=== PATIENT | male | born 1935 | race Caucasian/White ===

== ENCOUNTER → 2018-12-27 | Outpatient (CLI) | payer MEDICARE, OTHER ==
[~2018-12-27] MED LIST: ASP325T PO; ATEN100T88 PO; ATRV10T PO; IBUP-15 PO; TMSL.4C PO
[2018-12-27 08:21] LABS: ALANINE AMINOTRANSFERASE 14 U/L (0-55); ALKALINE PHOSPHATASE 96 U/L (40-136); BILIRUBIN,TOTAL 0.7 MG/DL (0.1-1.0); BUN/CREATININE RATIO 14; CALCIUM 8.9 MG/DL (8.5-10.1); CARBON DIOXIDE 23 MMOL/L (21-32); CHLORIDE 104 MMOL/L (98-107); CHOLESTEROL 148 MG/DL (< 200); CREATININE SERUM 0.98 MG/DL (0.60-1.30); GFR ESTIMATED > 60; GLUCOSE 101 MG/DL (70-105); HDL CHOLESTEROL 43 MG/DL (40-60); POTASSIUM 4.2 MMOL/L (3.6-5.0); SODIUM 138 MMOL/L (135-145); TOTAL PROTEIN 7.3 GM/DL (6.4-8.2); TRIGLYCERIDES 98 MG/DL (<150); VLDL CHOLESTEROL 20 MG/DL (5-40)
== END ==
LOC: LAB 07:46
PROVIDERS: ATTEND Nurse Practitioner Family
DX: I25.10 Atherosclerotic heart disease of native coronary artery without angina pectoris (principal); E78.5 Hyperlipidemia, unspecified; I77.9 Disorder of arteries and arterioles, unspecified
CPT/HCPCS: 36415; 80053; 80061

== ENCOUNTER 2021-06-26 10:07 | Emergency (ER) | payer MEDICARE, OTHER ==
[~2021-06-26] VITALS: Ht 177 cm; Wt 80.0 kg
--- NOTE | 2021-06-26 10:53 | ED EENT ---
History of Present Illness General Chief Complaint: Oral/Throat Problems Stated Complaint: MOUTH PAIN Nursing Triage Note: PT HERE TO GET MOUTH CHECKED, PT HAS ULCER TYPE AREA ON LOWER LIP THAT HE STATES IS CANCER AND IS SUPPOSE TO HAVE RADIATION. PT HAS NEVER SEEN A PHYCIAN CO LOWER LIP. PT HAS NO REGULAR DR[facility] HAS NO RECORDS OR CONTACTS CO THIS PT. 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 He has had known lower lip cancer for many years. He thought he was coming to get radiation therapy today. He did not have an appointment so was referred to the ER. He denies any chest pain, shortness of breath, abdominal pain, nausea, vomiting, diarrhea, fever, chills, weakness, numbness, or any other concerns. He says his lower lip has been hurting him for many years and he finally got a referral for someone to see him. Allergies and Home Medications Allergies Coded Allergies: No Allergy Information Available (Unverified , 10/22/13) Patient Home Medication List Home Medication List Reviewed: Yes Aspirin (Aspirin 325 Mg Tab) 325 Mg Tab, 325 MG PO DAILY, (Reported) Entered as Reported by: DIPIKA CASTRO on 07/27/10 125 Atenolol (Tenormin 100 Mg) 100 Mg Tablet, 100 MG PO DAILY, (Reported) Entered as Reported by: DIPIKA CASTRO on 07/27/10 125 Atorvastatin Calcium (Lipitor 10 Mg) 10 Mg Tablet, 10 MG PO DAILY, (Reported) Entered as Reported by: DIPIKA CASTRO on 07/27/10 125 Ibuprofen (Advil) 200 Mg Tablet, 2 TAB PO HS, (Reported) Entered as Reported by: DIPIKA CASTRO on 07/27/10 125 Tamsulosin Hcl (Flomax) 0.4 Mg Cap, 0.4 MG PO DAILY, (Reported) Entered as Reported by: DIPIKA CASTRO on 07/27/10 125 Review of Systems Review of Systems Constitutional: no symptoms reported Eyes: No Symptoms Reported Ears: No Symptoms Reported Nose: no symptoms reported Mouth: other (Lip cancer) Throat: no symptoms reported Respiratory: no symptoms reported Cardiovascular: no symptoms reported Gastrointestinal: no symptoms reported Musculoskeletal: no symptoms reported Skin: no symptoms reported Neurological: No Symptoms Reported Hematologic/Lymphatic: No Symptoms Reported Immunological/Allergic: no symptoms reported All Other Systems Reviewed Negative Unless Noted: Yes Past Fmntowg-Wrlpbj-Crwfwx Hx Patient Social History Tobacco Use?: No Past Medical History Surgeries: No Physical Exam Vital Signs Vital Signs - First Documented 06/26/21 10:20 Temp 36.6 Pulse 82 Resp 18 B/P (MAP) 154/81 (105) Pulse Ox 95 Height, Weight, BMI Height: '" Weight: lbs. oz. kg; 25.00 BMI Method: General Appearance: WD/WN, no apparent distress Eyes: bilateral eye normal inspection Ears: bilateral ear auricle normal Nose: normal inspection Mouth/Throat: other (Lower lip ulceration in the midline with some swelling but no cellulitis or discharge) Neck: non-tender, full range of motion, supple, normal inspection Cardiovascular: regular rate, rhythm, no edema, no murmur Respiratory: chest non-tender, lungs clear, normal breath sounds, no respiratory distress, no accessory muscle use Gastrointestinal: normal bowel sounds, non tender, soft; No distended, No guarding, No rebound Neurologic/Psychiatric: no motor/sensory deficits, alert, normal mood/affect Skin: normal color, warm/dry Progress/Results/Core Measures Results/Orders Vital Signs/I&O 06/26/21 10:20 Temp 36.6 Pulse 82 Resp 18 B/P (MAP) 154/81 (105) Pulse Ox 95 Blood Pressure Mean: 105 Progress Progress Note : Progress Note 86-year-old male with above history coming in thinking he was getting started on radiation therapy. The patient was confused as to why he was truly here. We contacted family and they said he has an appointment with Dr. Cadet to go over options for his lip cancer. They said he really was not supposed to come to the ER. He has no acute complaints at this time. He was discharged in stable condition with strict return precautions Departure Impression Primary Impression: Lip ulceration Disposition: 01 HOME, SELF-CARE Condition: Stable Departure-Patient Inst. Decision time for Depature: 10:52 Referrals: JEFERSON CADET MD NO,LOCAL PHYSICIAN (PCP) Primary Care Physician Patient Instructions: Mouth Cancer Add. Discharge Instructions: Please follow-up with Dr. Cadet to discuss options with your mouth lesion RUBENS COVINGTON MD Jun 26, 2021 10:53
[2021-06-26 11:35] VITALS: BP 154/81
== END 2021-06-26 11:35 | disposition home or self-care (01) ==
LOC: EDUNIT# 10:07 → ER 10:08
DX: C00.2 Malignant neoplasm of external lip, unspecified (principal); K13.0 Diseases of lips
CPT/HCPCS: 99281

== ENCOUNTER 2021-09-22 17:45 | Inpatient (IN) | payer MEDICARE, OTHER ==
[~2021-09-22] VITALS: Ht 183 cm; Wt 65.3 kg
[2021-09-22] MEDS ORDERED: LIDOCAINE UROJET 2% GEL 10 ML PKG ONE (18:12)
[2021-09-22] MEDS ORDERED: LIDOCAINE UROJET 2% GEL 10 ML PKG TOP ONE (18:15)
[2021-09-22] MEDS ORDERED: NS IV 1000 ML 1,000 ML IV SCH (18:15)
[2021-09-22 18:16] LABS: BASOPHILS % (AUTO) 0 % (0-10); EOSINOPHILS % (AUTO) 0 % (0-10); HEMATOCRIT 46 % (40-54); HEMOGLOBIN 15.6 g/dL (13.3-17.7); LYMPHOCYTES # (AUTO) 0.8 10^3/uL (1.0-4.0); LYMPHOCYTES % (AUTO) 8 % (12-44); MEAN CORPUSCULAR HEMOGLOBIN 30 pg (25-34); MEAN CORPUSCULAR HGB CONC 34 g/dL (32-36); MEAN CORPUSCULAR VOLUME 88 fL (80-99); MEAN PLATELET VOLUME 8.4 fL (9.0-12.2); MONOCYTES # (AUTO) 0.6 10^3/uL (0.0-1.0); MONOCYTES % (AUTO) 6 % (0-12); NEUTROPHILS # (AUTO) 8.9 10^3/uL (1.8-7.8); NEUTROPHILS % (AUTO) 86 % (42-75); PLATELET COUNT 241 10^3/uL (130-400); WHITE BLOOD COUNT 10.3 10^3/uL (4.3-11.0)
[2021-09-22 18:24] LABS: ALBUMIN 3.8 GM/DL (3.2-4.5); CHLORIDE 105 MMOL/L (98-107); POTASSIUM 4.2 MMOL/L (3.6-5.0); SODIUM 139 MMOL/L (135-145)
[2021-09-22 18:25] LABS: CALCIUM 8.8 MG/DL (8.5-10.1)
[2021-09-22 18:26] LABS: GLUCOSE 167 MG/DL (70-105)
[2021-09-22 18:27] LABS: TOTAL PROTEIN 7.3 GM/DL (6.4-8.2)
[2021-09-22 18:28] LABS: BILIRUBIN,TOTAL 0.7 MG/DL (0.1-1.0); CARBON DIOXIDE 18 MMOL/L (21-32)
[2021-09-22 18:30] LABS: ALKALINE PHOSPHATASE 74 U/L (40-136); CREATININE SERUM 1.09 MG/DL (0.60-1.30); GFR ESTIMATED 67
[2021-09-22 18:31] LABS: BUN/CREATININE RATIO 27
[2021-09-22 18:33] LABS: ALANINE AMINOTRANSFERASE 24 U/L (0-55); CREATINE KINASE 1633 U/L (30-200); MAGNESIUM 2.3 MG/DL (1.6-2.4)
--- NOTE | 2021-09-22 18:36 | ED General ---
General Chief Complaint: Trauma-Non Activation Stated Complaint: FOUND IN YARD Source of Information: Patient, Other (SON -IN-LAW BRINGS PT IN, BUT DOES NOT KNOW ANYTHING ABOUT PT'S PMH OR EVENTS OF TODAY) Exam Limitations: Other (PT WITH DEMENTIA, BUT ABLE TO ANSWER A FEW QUESTIONS A PPROPRIATELY, BUT IS DISORIENTED TO TIME/SITUATION) History of Present Illness Date Seen by Provider: Sep 22, 2021 Time Seen by Provider: 17:59 Initial Comments PT ARRIVES VIA POV FROM HOME WITH SON-IN-LAW PT WITH DEMENTIA AND LIVES ALONE PT WAS FOUND ON THE GROUND OUTSIDE OF HIS HOME, BY HIS SISTER, AROUND 1600 TODAY--WAS NOT WEARING A SHIRT, BUT WAS WEARING JEANS SISTER DID NOT ACCOMPANY HIM TO ER IS NOT KNOWN HOW LONG HE HAS BEEN OUTSIDE LAST KNOWN WELL TIME IS UNKNOWN--THEY THINK THAT PT'S SISTER "MIGHT" HAVE TALKED TO HIM ON THE PHONE SON IN LAW DOES NOT KNOW ANY HISTORY, IS ON PHONE WITH HIS , PT'S DAUGHTER SHE ONLY KNOWS MINIMAL HISTORY ONLY KNOWN MEDICATION IS FOR DEMENTIA PT HAS A PACEMAKER--DO NOT KNOW WHY IT WAS PUT IN ONLY OTHER HISTORY IS THAT HE IS TO HAVE SURGERY ON HIS LIP BY DR BETANCOURT FOR CANCER TO HIS LIP. NO OTHER HISTORY IS KNOWN THEY THINK HE HAS HAD A COVID VACCINE, BUT ARE NOT CERTAIN. Allergies and Home Medications Allergies Coded Allergies: No Allergy Information Available (Unverified , 10/22/13) Patient Home Medication List Aspirin (Aspirin 325 Mg Tab) 325 Mg Tab, 325 MG PO DAILY, (Reported) Entered as Reported by: DIPIKA CASTRO on 07/27/10 125 Atenolol (Tenormin 100 Mg) 100 Mg Tablet, 100 MG PO DAILY, (Reported) Entered as Reported by: DIPIKA CASTRO on 07/27/10 125 Atorvastatin Calcium (Lipitor 10 Mg) 10 Mg Tablet, 10 MG PO DAILY, (Reported) Entered as Reported by: DIPIKA CASTRO on 07/27/10 125 Ibuprofen (Advil) 200 Mg Tablet, 2 TAB PO HS, (Reported) Entered as Reported by: DIPIKA CASTRO on 07/27/10 1255 Tamsulosin Hcl (Flomax) 0.4 Mg Cap, 0.4 MG PO DAILY, (Reported) Entered as Reported by: DIPIKA CASTRO on 07/27/10 1254 Past Oobzpoi-Jfcjfp-Zmform Hx Past Medical History Surgeries: No Physical Exam Vital Signs Vital Signs - First Documented 09/22/21 18:30 O2 Flow Rate 2.00 Capillary Refill : Height, Weight, BMI Height: '" Weight: lbs. oz. kg; 25.00 BMI Method: Progress/Results/Core Measures Suspected Sepsis SIRS Temperature: Pulse: Respiratory Rate: Laboratory Tests 09/22/21 18:08: White Blood Count 10.3 Blood Pressure / Mean: Laboratory Tests 09/22/21 18:08: Creatinine 1.09, Platelet Count 241, Total Bilirubin 0.7 09/22/21 18:29: INR Comment 1.1 Results/Orders Lab Results Laboratory Tests Test 09/22/21 17:57 09/22/21 18:08 09/22/21 18:15 09/22/21 18:29 Range/Units Glucometer 205 H 70-110 MG/DL White Blood Count 10.3 4.3-11.0 10^3/uL Red Blood Count 5.19 4.30-5.52 10^6/uL Hemoglobin 15.6 13.3-17.7 g/dL Hematocrit 46 40-54 % Mean Corpuscular Volume 88 80-99 fL Mean Corpuscular Hemoglobin 30 25-34 pg Mean Corpuscular Hemoglobin Concent 34 32-36 g/dL Red Cell Distribution Width 14.0 10.0-14.5 % Platelet Count 241 130-400 10^3/uL Mean Platelet Volume 8.4 L 9.0-12.2 fL Immature Granulocyte % (Auto) 1 % Neutrophils (%) (Auto) 86 H 42-75 % Lymphocytes (%) (Auto) 8 L 12-44 % Monocytes (%) (Auto) 6 0-12 % Eosinophils (%) (Auto) 0 0-10 % Basophils (%) (Auto) 0 0-10 % Neutrophils # (Auto) 8.9 H 1.8-7.8 10^3/uL Lymphocytes # (Auto) 0.8 L 1.0-4.0 10^3/uL Monocytes # (Auto) 0.6 0.0-1.0 10^3/uL Eosinophils # (Auto) 0.0 0.0-0.3 10^3/uL Basophils # (Auto) 0.0 0.0-0.1 10^3/uL Immature Granulocyte # (Auto) 0.1 0.0-0.1 10^3/uL Neutrophils % (Manual) 89 % Lymphocytes % (Manual) 3 % Monocytes % (Manual) 4 % Reactive Lymphocytes 4 % Blood Morphology Comment NORMAL Sodium Level 139 135-145 MMOL/L Potassium Level 4.2 3.6-5.0 MMOL/L Chloride Level 105 98-107 MMOL/L Carbon Dioxide Level 18 L 21-32 MMOL/L Anion Gap 16 H 5-14 MMOL/L Blood Urea Nitrogen 29 H 7-18 MG/DL Creatinine 1.09 0.60-1.30 MG/DL Estimat Glomerular Filtration Rate 67 BUN/Creatinine Ratio 27 Glucose Level 167 H 70-105 MG/DL Calcium Level 8.8 8.5-10.1 MG/DL Corrected Calcium 9.0 8.5-10.1 MG/DL Magnesium Level 2.3 1.6-2.4 MG/DL Total Bilirubin 0.7 0.1-1.0 MG/DL Aspartate Amino Transf (AST/SGOT) 53 H 5-34 U/L Alanine Aminotransferase (ALT/SGPT) 24 0-55 U/L Alkaline Phosphatase 74 40-136 U/L Total Creatine Kinase 1633 H 30-200 U/L Creatine Kinase MB 4.0 <6.6 NG/ML Myoglobin 703.6 H 10.0-92.0 NG/ML Troponin I < 0.028 <0.028 NG/ML B-Type Natriuretic Peptide 56.8 <100.0 PG/ML Total Protein 7.3 6.4-8.2 GM/DL Albumin 3.8 3.2-4.5 GM/DL Serum Alcohol < 10 <10 MG/DL Urine Color YELLOW Urine Clarity CLEAR Urine pH 5.0 5-9 Urine Specific [place] >=1.030 1.016-1.022 Urine Protein 1+ H NEGATIVE Urine Glucose (UA) NEGATIVE NEGATIVE Urine Ketones TRACE H NEGATIVE Urine Nitrite NEGATIVE NEGATIVE Urine Bilirubin NEGATIVE NEGATIVE Urine Urobilinogen 0.2 < = 1.0 MG/DL Urine Leukocyte Esterase NEGATIVE NEGATIVE Urine RBC (Auto) 2+ H NEGATIVE Urine RBC 25-50 H /HPF Urine WBC 0-2 /HPF Urine Crystals PRESENT H /LPF Urine Amorphous Sediment FEW JANINE URATES H /LPF Urine Bacteria TRACE /HPF Urine Casts PRESENT /LPF Urine Hyaline Casts 5-10 H /LPF Urine Granular Casts 2-5 H /LPF Urine Mucus NEGATIVE /LPF Urine Culture Indicated NO Influenza Type A (RT-PCR) Not Detected Not Detecte Influenza Type B (RT-PCR) Not Detected Not Detecte SARS-CoV-2 RNA (RT-PCR) Detected H Not Detecte Prothrombin Time 14.9 H 12.2-14.7 SEC INR Comment 1.1 0.8-1.4 Activated Partial Thromboplast Time 26 24-35 SEC My Orders Orders - EMIYL GIL DO Ed Iv/Invasive Line Start (09/22/21 18:00) Ekg Tracing (09/22/21 18:00) O2 (09/22/21 18:00) Monitor-Rhythm Ecg Trace Only (09/22/21 18:00) Ct Head Wo-R/O Stroke (09/22/21 18:00) Ct Cervical Spine Wo (09/22/21 18:00) Chest 1 View, Ap/Pa Only (09/22/21 18:00) Pelvis (09/22/21 18:00) Alcohol (09/22/21 18:00) Bnp Lb (09/22/21 18:00) Cbc With Automated Diff (09/22/21 18:00) Comprehensive Metabolic Panel (09/22/21 18:00) Creatine Kinase (09/22/21 18:00) Creatine Kinase Mb (09/22/21 18:00) Magnesium (09/22/21 18:00) Protime With Inr (09/22/21 18:00) Partial Thromboplastin Time (09/22/21 18:00) Myoglobin Serum (09/22/21 18:00) Troponin I Alexander (09/22/21 18:00) Covid 19 Inhouse Test (09/22/21 18:00) Influenza A And B By Pcr (09/22/21 18:00) Isolation Central Supply Req (09/22/21 18:00) Ed Iv/Invasive Line Start (09/22/21 18:07) Ns Iv 1000 Ml (Sodium Chloride 0.9%) (09/22/21 18:15) Cervical Collar (09/22/21 18:08) Ct Thoracic/Lumbar Spine Wo (09/22/21 18:09) Ct Jade Chest/Noang Abd-Pelv W (09/22/21 18:09) Catheter(Urinary) Insert & Ass 03,15 (09/22/21 18:11) Lidocaine 2% (Urojet) (Xylocaine Urojet) (09/22/21 18:15) Manual Differential (09/22/21 18:08) Lidocaine 2% (Urojet) (Xylocaine Urojet) (09/22/21 18:12) Iohexol Injection (Omnipaque 350 Mg/Ml 1 (09/22/21 19:00) Ns (Ivpb) (Sodium Chloride 0.9% Ivpb Bag (09/22/21 19:00) Ed Iv/Invasive Line Start (09/22/21 19:25) Lactated Ringers (Lr 1000 Ml Iv Solution (09/22/21 19:30) Medications Given in ED Current Medications Medications Dose Ordered Sig/Liss Route Start Time Stop Time Status Last Admin Dose Admin Iohexol 100 ml ONCE ONCE IV 09/22/21 19:00 09/22/21 19:01 DC 09/22/21 19:01 65 ML Lactated Ringer's 1,000 ml @ 0 mls/hr Q0M ONCE IV 09/22/21 19:30 09/22/21 19:31 DC 09/22/21 19:42 1,000 MLS/HR Lidocaine HCl 10 ml ONCE ONCE TOP 09/22/21 18:15 09/22/21 18:16 DC 09/22/21 18:16 10 ML Sodium Chloride 100 ml ONCE ONCE IV 09/22/21 19:00 09/22/21 19:01 DC 09/22/21 19:01 80 ML Vital Signs/I&O 09/22/21 09/22/21 09/22/21 17:55 17:55 18:30 Temp 37.8 37.8 Pulse 93 93 Resp 20 20 B/P (MAP) 142/69 (93) 142/69 (93) Pulse Ox 92 92 98 O2 Delivery Room Air Room Air Nasal Cannula O2 Flow Rate 2.00 Capillary Refill : Point of Care Testing Finger Stick Blood Glucose: 205 Departure Impression Primary Impression: COVID-19 virus infection Additional Impressions: HEAT RELATED ILLNESS Dementia Departure-Patient Inst. Referrals: NO,LOCAL PHYSICIAN (PCP/Family) Primary Care Physician EMILY GIL DO Sep 22, 2021 18:36
[2021-09-22 18:37] LABS: NEUTROPHILS % (MANUAL) 89 %
[2021-09-22 18:38] LABS: LYMPHOCYTES % (MANUAL) 3 %; MONOCYTES % (MANUAL) 4 %; RBC MORPH NORMAL; REACTIVE LYMPHOCYTES 4 %
[2021-09-22 18:51] LABS: BILIRUBIN,URINE NEGATIVE (NEGATIVE); CLARITY,URINE CLEAR; COLOR,URINE YELLOW; GLUCOSE, URINE (UA) NEGATIVE (NEGATIVE); KETONES,URINE TRACE (NEGATIVE); LEUKOCYTE ESTERASE ,URINE NEGATIVE (NEGATIVE); NITRITE,URINE NEGATIVE (NEGATIVE); PROTEIN,URINE 1+ (NEGATIVE)
[2021-09-22 18:59] LABS: BACTERIA,URINE TRACE /HPF; RBC,URINE 25-50 /HPF; WBC,URINE 0-2 /HPF
[2021-09-22 19:00] LABS: AMORPHOUS SEDIMENT,UR FEW AMOR URATES /LPF
[2021-09-22] MEDS ORDERED: NS 100 ML (IVPB) BAG IV ONE (19:00)
[2021-09-22] MEDS ORDERED: IOHEXOL 350 MG/ML 100 ML (OMNIPAQUE 350) VIAL IV ONE (19:00)
--- NOTE | 2021-09-22 19:03 | Diagnostic Imaging Report ---
PROCEDURE: CT head wo r/o stroke. TECHNIQUE: Multiple contiguous axial images were obtained through the brain without the use of intravenous contrast. Auto Exposure Controls were utilized during the CT exam to meet ALARA standards for radiation dose reduction. INDICATION: Fever, unconscious and "neuro deficit" There is no intracranial hemorrhage, hydrocephalus, edema, mass, mass effect nor evidence for elevated intracerebral pressures. There is intracranial atherosclerotic vascular calcifications along the carotids as well as left vertebral. There is no loss of the normal ramirez-white matter differentiations. No evidence for elevated intracranial pressures. No abnormal extra-axial fluid collection. IMPRESSION: Mild senescent cortical atrophy and atherosclerotic vascular disease. However, no hemorrhage, edema, hydrocephalus or acute appearing abnormalities found. Dictated by: Dictated on workstation # [id number]
[2021-09-22 19:08] LABS: INR 1.1 (0.8-1.4); PROTHROMBIN TIME PATIENT 14.9 SEC (12.2-14.7)
--- NOTE | 2021-09-22 19:18 | Diagnostic Imaging Report ---
PROCEDURE: CT cervical spine without contrast. TECHNIQUE: Multiple contiguous axial images were obtained through the cervical spine without the use of intravenous contrast. Sagittal and coronal reformations were then performed. Auto Exposure Controls were utilized during the CT exam to meet ALARA standards for radiation dose reduction. INDICATION: Fever FINDINGS: There is degenerative changes to the discs, endplates, and facets throughout the cervical spine. There is trace grade 1 degenerative retrolisthesis C4 on C5. The remaining cervical column aligned anatomically. No facet joint dislocation. No fracture or acute endplate irregularity. Craniocervical relationship unremarkable. There is heavy vascular calcifications of the cervical carotids. There is a very large partially visualized right neck mass, epicenter appears to be the right thyroid lobe that extends into the superior mediastinum and below the [id number]. Where visualized, it measures maximal 6.5 cm AP x 4.0 cm transverse and deviates the trachea to the left. There is presumed goiter as mass was present on the chest CT of 2013 but is at least somewhat larger than at that exam. IMPRESSION: 1. Degenerative changes with grade 1 degenerative listhesis. No fracture or traumatic malalignment. No acute cervical spinal pathology. 2. Large right neck mass believed goiter as thyroid enlarged since 2013 but is present at that old exam. 3. Chronic carotid atherosclerotic vascular calcifications. Dictated by: Dictated on workstation # [id number]
--- NOTE | 2021-09-22 19:27 | Diagnostic Imaging Report ---
PROCEDURE: CT thoracic and lumbar spine without contrast. TECHNIQUE: Multiple contiguous axial images were obtained through the thoracic and lumbar spine without the use of intravenous contrast. Sagittal and coronal reformations were then performed. All CT scans use one or more of the following dose optimizing techniques: automated exposure control, MA and/or KvP adjustment based on a patient size and exam type, or iterative reconstruction. INDICATION: Found down with fever. FINDINGS: T-spine: Thoracic stature is normal. The alignment anatomic. There is degenerative changes without high-grade stenosis. Partially visualized right lobe thyroid mass with retrosternal extension deviates the trachea to the left; this was present on a chest CT of 2013. Visualized aorta is atherosclerotic. Lumbar: Lumbar stature is normal. The alignment anatomic. There is degenerative changes at the discs, facets and endplates. No fracture. No bony destruction. IMPRESSION: 1. No acute finding at CT thoracolumbar spine. 2. Not mentioned above, cholelithiasis. Dictated by: Dictated on workstation # [id number]
[2021-09-22] MEDS ORDERED: LACTATED RINGERS 1,000 ML IV ONE (19:30)
--- NOTE | 2021-09-22 19:31 | Diagnostic Imaging Report ---
INDICATION: Fall, Covid patient, fever. 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 There is a right superior mediastinal mass effect deviating the trachea to the left; this finding correlates with the known large retrosternal goiterous right thyroid lobe present on a remote chest CT of 2013. Given the hernia and the mediastinal mass effect the lungs themselves appeared radiographically clear. No lea alveolar consolidation. No effusion or pneumothorax apparent. No overt failure pattern. 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 No focal infiltrate or acute pleural pathology and there was no failure pattern. Dictated by: Dictated on workstation # [id number]
--- NOTE | 2021-09-22 19:33 | Diagnostic Imaging Report ---
INDICATION: Found unconscious in yard, Covid positive, pelvic pain. TECHNIQUE: AP pelvis 7:03 PM CORRELATION STUDY: None FINDINGS: The pelvis demonstrates no evidence for acute fracture. The pectineal lines and obturator rings are maintained. Pubic symphysis and SI joints are unremarkable. Hips unremarkable. Radiation seed implants. Contrast material in the bladder and ureters with presence of Fu catheter tube. IMPRESSION: Negative for acute bony abnormality of the pelvis. Dictated by: Dictated on workstation # [id number]
--- NOTE | 2021-09-22 19:53 | Diagnostic Imaging Report ---
INDICATION: Trauma. TECHNIQUE: CTA chest, abdomen and pelvis. Thin axial sections through the chest, abdomen and pelvis are obtained following intravenous contrast bolus. Multiplanar MIP images were reconstructed and reviewed. All CT scans use one or more of the following dose optimizing techniques: automated exposure control, MA and/or KvP adjustment based on patient size and exam type or iterative reconstruction. INDICATION: Found unconscious, fever, Covid positive. CHEST: There are no intraluminal pulmonary arterial filling defects. There are no findings of pulmonary arterial embolus. This patient has a very large retrocardiac gastric hernia which is present on remote CT performed in 2013. 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 While chronic, it has increased in size, today 6.4 x 4.1 cm previously 4.9 x 3.0 cm in axial dimensions. The atherosclerotic aorta is nonaneurysmal. Heart size is upper limits. The cava is patent is a pacemaker device present. No acute chest wall pathology. No findings of elevated right heart pressures. No evidence for a suspicious lung mass or thoracic adenopathy. ABDOMEN/PELVIS: There are gallstones present but no findings suggestive of acute cholecystitis. A benign left hepatic lobe cyst has decreased in size from the remote comparison. No acute or suspicious liver pathology. Spleen unremarkable. There is no adrenal mass. 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 The adrenals are negative. The kidneys are unobstructed. There is aortoiliac and mesenteric atherosclerotic vascular calcification without rupture or lea aneurysm. There is an elevated colonic fecal load consistent with constipation but no resultant bowel obstruction. There are no findings of appendicitis or diverticulitis. The urinary bladder is catheterized. No pneumatosis. No free gas. No ascites, abscess, hematoma or acute fluid collection. There are a few bilateral renal parapelvic cysts, chronic. No hydronephrosis. IMPRESSION: Chest: Negative for PE or acute aortic disease. Enlarging goiterous right thyroid lobe mass with redemonstration of a retrocardiac herniation of the stomach. No acute pulmonary parenchymal or pleural abnormality however. Abdomen/pelvis: Gallstones and nonaneurysmal atherosclerosis. Benign renal parapelvic cyst. Colonic constipation without impaction or obstruction. No acute appearing abdominopelvic abnormality. Dictated by: Dictated on workstation # [id number]
[2021-09-22 21:35] VITALS: BP 152/73
[2021-09-22] MEDS ORDERED: D5 1/2 NS W/KCL 20 MEQ/L 1,000 ML IV ONE (21:39)
[2021-09-22] MEDS: D5 1/2 NS W/KCL 20 MEQ/L 1,000 ML IV SCH (23:06)
[2021-09-22] MEDS ORDERED: ONDANSETRON 4 MG/2 ML (SDV) Z0FRAN IV PRN (23:15)
[2021-09-23] VITALS (8 sets, daily range): BP systolic 126–179; BP diastolic 70–93
[2021-09-23] MEDS: D5 1/2 NS W/KCL 20 MEQ/L 1,000 ML IV SCH ×5 (05:09→21:28)
[2021-09-23 06:50] LABS: BASOPHILS % (AUTO) 0 % (0-10); EOSINOPHILS % (AUTO) 0 % (0-10); HEMATOCRIT 44 % (40-54); HEMOGLOBIN 14.9 g/dL (13.3-17.7); LYMPHOCYTES # (AUTO) 0.9 10^3/uL (1.0-4.0); LYMPHOCYTES % (AUTO) 11 % (12-44); MEAN CORPUSCULAR HEMOGLOBIN 31 pg (25-34); MEAN CORPUSCULAR HGB CONC 34 g/dL (32-36); MEAN CORPUSCULAR VOLUME 90 fL (80-99); MEAN PLATELET VOLUME 9.2 fL (9.0-12.2); MONOCYTES # (AUTO) 0.9 10^3/uL (0.0-1.0); MONOCYTES % (AUTO) 10 % (0-12); NEUTROPHILS # (AUTO) 6.5 10^3/uL (1.8-7.8); NEUTROPHILS % (AUTO) 79 % (42-75); PLATELET COUNT 232 10^3/uL (130-400); WHITE BLOOD COUNT 8.3 10^3/uL (4.3-11.0)
[2021-09-23 07:14] LABS: POTASSIUM 3.8 MMOL/L (3.6-5.0)
[2021-09-23 07:15] LABS: CALCIUM 8.2 MG/DL (8.5-10.1)
[2021-09-23 07:20] LABS: CREATININE SERUM 0.81 MG/DL (0.60-1.30)
[2021-09-23 07:32] LABS: CREATINE KINASE MB 1.8 NG/ML (<6.6)
[2021-09-23] MEDS ORDERED: RT-ALBUTEROL HFA 8.5 GM INHALER IH PRN (11:15)
--- NOTE | 2021-09-23 11:38 | History & Physical-Hospitalist ---
History of Present Illness HPI/Chief Complaint She is an 86-year-old male who presented to the emergency department after being found down. Apparently he was confused in the emergency department and was not able to provide much history. He is coming around this morning and able to fill in some of the details though still is unclear on some things. He reports he was working out in his barn and he fell night. He reports that he slept out by the barn that night and was still down all morning until his sister came by around noon yesterday. He is unsure how he fell. He was found to have COVID-19 and rhabdomyolysis and was admitted for further management. Date Seen 09/23/21 Time Seen by a Provider: 10:40 Attending Physician Boris Brown MD PCP Admitting Physician: Sunita Bacon MD Attending Physician: Sunita Bacon MD Referring Physician Date of Admission Sep 22, 2021 at 20:05 Home Medications & Allergies Home Medications Reviewed patient Home Medication Reconciliation performed by pharmacy medication reconciliations dietetic technician registered and/or nursing. Patients Allergies have been reviewed. Allergies Allergies Coded Allergies No Allergy Information Available (Unverified10/22/13) Past Bsuejby-Kmdddg-Xljfry Hx Patient Social History Employed/Student: retired Tobacco Use?: No Use of E-Cig and/or Vaping dev: No Substance use?: No Alcohol Use?: No Pt feels they are or have been: Unable to obtain Immunizations Up To Date First/Initial COVID19 Vaccinat: 2020 Second COVID19 Vaccination Ghulam: 2020 Current Status Advance Directives: Unable to obtain Communicates: Verbally Primary Language: Yoruba Preferred Spoken Language: Yoruba Is interpretation needed?: No Implanted or Applied Medical D: Pacemaker Past Medical History High Cholesterol, Hypertension Benign Prostatic Hyperpl Skin What Type of Treatment Did You: Surgical Intervention Family Medical History Reviewed Nursing Family Hx No Pertinent Family Hx Review of Systems ROS-Unable to Obtain: limited see HPI Constitutional: No fever; malaise, weakness Respiratory: No cough, No short of breath Physical Exam Physical Exam Vital Signs Vital Signs - First Documented 09/22/21 09/23/21 18:30 10:59 O2 Flow Rate 2.00 FiO2 28 Capillary Refill : Less Than 3 Seconds Height, Weight, BMI Height: '" Weight: lbs. oz. kg; 19.49 BMI Method: General Appearance: No Apparent Distress, WD/WN, Thin, Other (sunburnt skin) HEENT: PERRL/EOMI, Moist Mucous Membranes, Other (area of escahr on bottom lip near midline) Neck: Normal Inspection, Supple, Thyromegaly Respiratory: Lungs Clear, No Accessory Muscle Use, No Respiratory Distress Cardiovascular: Regular Rate, Rhythm, No Murmur Gastrointestinal: Normal Bowel Sounds, Non Tender, Soft Extremity: Normal Capillary Refill, No Calf Tenderness, No Pedal Edema Neurologic/Psychiatric: Alert, Oriented x3 (to major details only), Normal Mood/Affect Skin: Warm/Dry, Other (sunburnt) Results Results/Procedures Labs Laboratory Tests 09/22/21 18:08 09/23/21 06:45 Patient resulted labs reviewed. Imaging [facility]. [place], [place] NAME: DANIELLE HECK [facility] REC#: [id number] PT STATUS: REG ER : 1935 PHYSICIAN: EMILY GIL DO ADMIT DATE: 09/22/21/ER Signed Date of Exam:09/22/21 CT CERVICAL SPINE WO PROCEDURE: CT cervical spine without contrast. TECHNIQUE: Multiple contiguous axial images were obtained through the cervical spine without the use of intravenous contrast. Sagittal and coronal reformations were then performed. Auto Exposure Controls were utilized during the CT exam to meet ALARA standards for radiation dose reduction. INDICATION: Fever FINDINGS: There is degenerative changes to the discs, endplates, and facets throughout the cervical spine. There is trace grade 1 degenerative retrolisthesis C4 on C5. The remaining cervical column aligned anatomically. No facet joint dislocation. No fracture or acute endplate irregularity. Craniocervical relationship unremarkable. There is heavy vascular calcifications of the cervical carotids. There is a very large partially visualized right neck mass, epicenter appears to be the right thyroid lobe that extends into the superior mediastinum and below the svshz-yv-kqsy. Where visualized, it measures maximal 6.5 cm AP x 4.0 cm transverse and deviates the trachea to the left. There is presumed goiter as mass was present on the chest CT of 2013 but is at least somewhat larger than at that exam. IMPRESSION: 1. Degenerative changes with grade 1 degenerative listhesis. No fracture or traumatic malalignment. No acute cervical spinal pathology. 2. Large right neck mass believed goiter as thyroid enlarged since 2013 but is present at that old exam. 3. Chronic carotid atherosclerotic vascular calcifications. Dictated by: Dictated on workstation # [id number] Dict: 09/22/211855 Trans: 09/22/211941 KOMAL [id number] Interpreted by: NATO GRAHAM Electronically signed by: NATO GRAHAM 09/22/211941 [facility] [place] [place] NAME: DANIELLE HECK Darryn [facility] REC#: [id number] PT STATUS: REG ER : 1935 PHYSICIAN: EMILY GIL DO ADMIT DATE: 09/22/21/ER Signed Date of Exam:09/22/21 CHEST 1 VIEW, AP/PA ONLY INDICATION: Fall, Covid patient, fever. 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 There is a right superior mediastinal mass effect deviating the trachea to the left; this finding correlates with the known large retrosternal goiterous right thyroid lobe present on a remote chest CT of 2013. Given the hernia and the mediastinal mass effect the lungs themselves appeared radiographically clear. No lea alveolar consolidation. No effusion or pneumothorax apparent. No overt failure pattern. 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 No focal infiltrate or acute pleural pathology and there was no failure pattern. Dictated by: Dictated on workstation # [id number] Dict: 09/22/211917 Trans: 09/22/211941 KOMAL [id number] Interpreted by: NATO GRAHAM Electronically signed by: NATO GRAHAM 09/22/211941 [facility] [place] [place] NAME: DANIELLE HECK Darryn [facility] REC#: [id number] PT STATUS: REG ER : 1935 PHYSICIAN: EMILY GIL DO ADMIT DATE: 09/22/21/ER Signed Date of Exam:09/22/21 CT HEAD WO-R/O STROKE PROCEDURE: CT head wo r/o stroke. TECHNIQUE: Multiple contiguous axial images were obtained through the brain without the use of intravenous contrast. Auto Exposure Controls were utilized during the CT exam to meet ALARA standards for radiation dose reduction. INDICATION: Fever, unconscious and "neuro deficit" There is no intracranial hemorrhage, hydrocephalus, edema, mass, mass effect nor evidence for elevated intracerebral pressures. There is intracranial atherosclerotic vascular calcifications along the carotids as well as left vertebral. There is no loss of the normal ramirez-white matter differentiations. No evidence for elevated intracranial pressures. No abnormal extra-axial fluid collection. IMPRESSION: Mild senescent cortical atrophy and atherosclerotic vascular disease. However, no hemorrhage, edema, hydrocephalus or acute appearing abnormalities found. Dictated by: Dictated on workstation # [id number] Dict: 09/22/211853 Trans: 09/22/211902 KOMAL [id number] Interpreted by: NATO GRAHAM Electronically signed by: NATO GRAHAM 09/22/211902 [facility] [place], [place] NAME: DANIELLE HECK MED REC#: [id number] PT STATUS: REG ER : 1935 PHYSICIAN: EMILY GIL DO ADMIT DATE: 09/22/21/ER Signed Date of Exam:09/22/21 PELVIS INDICATION: Found unconscious in yard, Covid positive, pelvic pain. TECHNIQUE: AP pelvis 7:03 PM CORRELATION STUDY: None FINDINGS: The pelvis demonstrates no evidence for acute fracture. The pectineal lines and obturator rings are maintained. Pubic symphysis and SI joints are unremarkable. Hips unremarkable. Radiation seed implants. Contrast material in the bladder and ureters with presence of Fu catheter tube. IMPRESSION: Negative for acute bony abnormality of the pelvis. Dictated by: Dictated on workstation # [id number] Dict: 09/22/211922 Trans: 09/22/211999 KOMAL [id number] Interpreted by: FÉLIX MCCALL DO Electronically signed by: FÉLIX MCCALL DO 09/22/211999 [facility] [place] [place] NAME: DANIELLE HECK MED REC#: [id number] PT STATUS: REG ER : 1935 PHYSICIAN: EMILY GIL DO ADMIT DATE: 09/22/21/ER Signed Date of Exam:09/22/21 CT LUDY CHEST/NOANG ABD-PELV W INDICATION: Trauma. TECHNIQUE: CTA chest, abdomen and pelvis. Thin axial sections through the chest, abdomen and pelvis are obtained following intravenous contrast bolus. Multiplanar MIP images were reconstructed and reviewed. All CT scans use one or more of the following dose optimizing techniques: automated exposure control, MA and/or KvP adjustment based on patient size and exam type or iterative reconstruction. INDICATION: Found unconscious, fever, Covid positive. CHEST: There are no intraluminal pulmonary arterial filling defects. There are no findings of pulmonary arterial embolus. This patient has a very large retrocardiac gastric hernia which is present on remote CT performed in 2013. 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 While chronic, it has increased in size, today 6.4 x 4.1 cm previously 4.9 x 3.0 cm in axial dimensions. The atherosclerotic aorta is nonaneurysmal. Heart size is upper limits. The cava is patent is a pacemaker device present. No acute chest wall pathology. No findings of elevated right heart pressures. No evidence for a suspicious lung mass or thoracic adenopathy. ABDOMEN/PELVIS: There are gallstones present but no findings suggestive of acute cholecystitis. A benign left hepatic lobe cyst has decreased in size from the remote comparison. No acute or suspicious liver pathology. Spleen unremarkable. There is no adrenal mass. 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 The adrenals are negative. The kidneys are unobstructed. There is aortoiliac and mesenteric atherosclerotic vascular calcification without rupture or lea aneurysm. There is an elevated colonic fecal load consistent with constipation but no resultant bowel obstruction. There are no findings of appendicitis or diverticulitis. The urinary bladder is catheterized. No pneumatosis. No free gas. No ascites, abscess, hematoma or acute fluid collection. There are a few bilateral renal parapelvic cysts, chronic. No hydronephrosis. IMPRESSION: Chest: Negative for PE or acute aortic disease. Enlarging goiterous right thyroid lobe mass with redemonstration of a retrocardiac herniation of the stomach. No acute pulmonary parenchymal or pleural abnormality however. Abdomen/pelvis: Gallstones and nonaneurysmal atherosclerosis. Benign renal parapelvic cyst. Colonic constipation without impaction or obstruction. No acute appearing abdominopelvic abnormality. Dictated by: Dictated on workstation # [id number] Dict: 09/22/211919 Trans: 09/22/211955 E [id number] Interpreted by: NATO GRAHAM Electronically signed by: NATO GRAHAM 09/22/211955 [facility] [place] [place] NAME: DANIELLE HECK Darryn [facility] REC#: [id number] PT STATUS: REG ER : 1935 PHYSICIAN: EMILY GIL DO ADMIT DATE: 09/22/21/ER Signed Date of Exam:09/22/21 CT THORACIC/LUMBAR SPINE WO PROCEDURE: CT thoracic and lumbar spine without contrast. TECHNIQUE: Multiple contiguous axial images were obtained through the thoracic and lumbar spine without the use of intravenous contrast. Sagittal and coronal reformations were then performed. All CT scans use one or more of the following dose optimizing techniques: automated exposure control, MA and/or KvP adjustment based on a patient size and exam type, or iterative reconstruction. INDICATION: Found down with fever. FINDINGS: T-spine: Thoracic stature is normal. The alignment anatomic. There is degenerative changes without high-grade stenosis. Partially visualized right lobe thyroid mass with retrosternal extension deviates the trachea to the left; this was present on a chest CT of 2013. Visualized aorta is atherosclerotic. Lumbar: Lumbar stature is normal. The alignment anatomic. There is degenerative changes at the discs, facets and endplates. No fracture. No bony destruction. IMPRESSION: 1. No acute finding at CT thoracolumbar spine. 2. Not mentioned above, cholelithiasis. Dictated by: Dictated on workstation # [id number] Dict: 09/22/211858 Trans: 09/22/211941 KOMAL [id number] Interpreted by: NATO GRAHAM Electronically signed by: NATO GRAHAM 09/22/211941 Assessment/Plan Admission Diagnosis Rhabdomyolysis Admission Status: Inpatient Order (span 2 midnights) Reason for Inpatient Admission: see below Assessment and Plan Rhabdomyolysis Continue IVF Creatinine normal Monitor UOP Check in AM PT/OT COVID19 Currentlyon 2lpm Decadron Not a candidate for Paxlovid or MAB Consider Actemra is worsens HTN HLD No acute needs, trend BP well controlled DVt ppx: Lovenox Diagnosis/Problems Diagnosis/Problems (1) COVID-19 virus infection Status: Acute (2) Rhabdomyolysis (3) Dementia Status: Acute (4) Lip ulceration Status: Acute (5) heat related illness DEBBIE SALOMON MD Sep 23, 2021 11:38
--- NOTE | 2021-09-23 11:39 | Physical Therapy Evaluation ---
PT Evaluation-General Medical Diagnosis Admission Date Sep 22, 2021 at 20:05 Medical Diagnosis: rhabdomylitis Onset Date: Sep 22, 2021 Therapy Diagnosis Therapy Diagnosis: weakness Precautions Precautions/Isolations: Contact Isolation Weight Bear Status Full Weight Bearing Full Weight Bearing Referral Physician: Werner Reason for Referral: Evaluation/Treatment Social History unknown living situation, unable to gather from patient Prior Prior Level of Function SCALE: Activities may be completed with or without assistive devices. 1-Ownahenqrx-olhkgky completes the activity by him/herself with no assistance from a helper. 5-Set-up or Clean-up Assistance-helper sets up or cleans up; patient completes activity. [place] assists only prior to or following the activity. 4-Supervision or Touching Assistance-helper provides verbal cues and/or t ouching/steadying and/or contact guard assistance as patient completes activity. Assistance may be provided throughout the activity or intermittently. 3-Partial/Moderate Assistance-helper does LESS THAN HALF the effort. [place] lifts, holds or supports trunk or limbs, but provides less than half the effort. 2-Substantial/Maximal Assistance-helper does MORE THAN HALF the effort. [place] lifts or holds trunk or limbs and provides more than half the effort. 5-Ubonccysh-ltbhcq does ALL the effort. Patient does none of the effort to complete the activity. Or, the assistance of 2 or more helpers is required for the patient to complete the activity. If activity was not attempted, code reason: 7-Patient Refused. 9-Not Applicable-not attempted and the patient did not perform the activity before the current illness, exacerbation or injury. 10-Not Attempted due to Environmental Limitations-(lack of equipment, weather restraints, etc.). 88-Not Attempted due to Medical Conditions or Safety Concerns. Bed Mobility: 6 Transfers (B,C,W/C): 6 Gait: 6 Stairs: 6 PT Evaluation-Current Subjective Patient was apparently found unresponsive in his yard. Difficult to gather any information from the patient. ROM/Strength Strength Lower Extremities 4/5 (B) Transfers Roll Left to Right (QC): 4 Sit to Lying (QC): 4 Lying to Sitting/Side of Bed(Q: 4 Sit to Stand (QC): 4 Gait Does the Patient Walk?: Yes Mode of Locomotion: Walk Anticipated Mode of Locomotion: Walk Walk 10 feet (QC): 5 Distance: 10' Gait Assistive Device: FWW Balance Sitting Static: Fair Sitting Dynamic: Fair Standing Static: Poor Standing Dynamic: Poor Assessment/Needs Patient with significant functional mobility limitations secondary to gait and balance dysfunction. Rehab Potential: Fair PT Short Term Goals Short Term Goals Time Frame: Sep 30, 2021 Roll Left & Right: 5 Sit to lyin Lying to sitting on side of be: 5 Sit to stand: 5 Chair/rce-ix-wrodp transfer: 5 Toilet transfer: 5 Car transfer: 5 Walk 10 feet: 5 Walk 50 feet with two turns: 5 Walk 150 feet: 5 Walking 10ft on uneven surface: 5 1 step (curb): 5 4 steps: 5 12 steps: 5 Picking up objects: 5 PT Care Services Manager Goals Care Services Manager Goals PT Care Services Manager Goals Time Frame: Oct 07, 2021 Roll Left & Right (QC): 6 Sit to Lying (QC): 6 Lying-Sitting on Side/Bed(QC): 6 Sit to Stand (QC): 6 Chair/Qrh-ym-Fgrai Xfer(QC): 6 Toilet Transfer (QC): 6 Car Transfer (QC): 6 Does the Patient Walk: Yes Walk 10 feet (QC): 6 Walk 50ft with 2 Turns (QC): 6 Walk 150 ft (QC): 6 Walking 10ft on Uneven Surface: 6 1 Step (curb) (QC): 6 4 Steps (QC): 6 12 Steps (QC): 6 Picking up an Object (QC): 6 PT Plan Problem List Problem List: Activity Tolerance, Functional Strength, Safety, Balance, Gait, Transfer, Bed Mobility Treatment/Plan Treatment Plan: Continue Plan of Care Treatment Plan: Bed Mobility, Functional Activity Mark Anthony, Functional Strength, Gait, Safety, Therapeutic Exercise, Transfers Treatment Duration: Oct 07, 2021 Frequency: 6 times per week Estimated Hrs Per Day: .5 hour per day Time/GCodes Time In: 1050 Time Out: 1105 Total Billed Treatment Time: 15 Total Billed Treatment 1, EV low complexity x 15' CARRIE BARROW PT Sep 23, 2021 11:39
[2021-09-23] MEDS: dexAMETHasone 6 MG TAB (DECADRON) PO SCH (11:58)
[2021-09-23] MEDS: ENOXAPARIN 40 MG/0.4 ML (LOVENOX) SYR SQ SCH (11:59)
[2021-09-23] MEDS: DONEPEZIL 5 MG (ARICEPT) TAB PO SCH (21:14)
[2021-09-24] MEDS: ACETAMINOPHEN 500 MG TAB (TYLENOL) PO PRN ×2 (00:29→20:53)
[2021-09-24 04:00] VITALS: BP 139/74
[2021-09-24] MEDS: dexAMETHasone 6 MG TAB (DECADRON) PO SCH (05:56)
[2021-09-24] MEDS: D5 1/2 NS W/KCL 20 MEQ/L 1,000 ML IV SCH ×3 (05:56→20:53)
[2021-09-24 07:52] LABS: HEMATOCRIT 43 % (40-54); HEMOGLOBIN 14.2 g/dL (13.3-17.7); MEAN CORPUSCULAR HEMOGLOBIN 30 pg (25-34); MEAN CORPUSCULAR HGB CONC 33 g/dL (32-36); MEAN CORPUSCULAR VOLUME 89 fL (80-99); MEAN PLATELET VOLUME 8.7 fL (9.0-12.2); PLATELET COUNT 211 10^3/uL (130-400); WHITE BLOOD COUNT 8.2 10^3/uL (4.3-11.0)
[2021-09-24 08:03] LABS: POTASSIUM 3.8 MMOL/L (3.6-5.0)
[2021-09-24 08:04] LABS: CALCIUM 8.1 MG/DL (8.5-10.1)
[2021-09-24 08:08] LABS: CREATININE SERUM 0.81 MG/DL (0.60-1.30)
[2021-09-24 08:56] VITALS: BP 146/80
--- NOTE | 2021-09-24 10:54 | Progress Note - Hospitalist ---
Subjective HPI/CC On Admission Date Seen by Provider: Sep 24, 2021 She is an 86-year-old male who presented to the emergency department after being found down. Apparently he was confused in the emergency department and was not able to provide much history. He is coming around this morning and able to fill in some of the details though still is unclear on some things. He reports he was working out in his barn and he fell night. He reports that he slept out by the barn that night and was still down all morning until his sister came by around noon yesterday. He is unsure how he fell. He was found to have COVID-19 and rhabdomyolysis and was admitted for further management. Subjective/Events-last exam Pt reports feeling better today. Has been up to chair. Napping now. No complaints. Offered to call his family and update and he declined. Objective Exam Vital Signs Vital Signs Date Time Temp Pulse Resp B/P (MAP) Pulse Ox O2 Delivery O2 Flow Rate FiO2 09/24/21 09:13 96 Nasal Cannula 2.00 09/24/21 08:56 36.2 64 19 146/80 (102) 09/23/21 10:59 28 Capillary Refill : Less Than 3 Seconds General Appearance: No Apparent Distress, Thin Respiratory: Lungs Clear, No Respiratory Distress Cardiovascular: Regular Rate, Rhythm, No Murmur Neurologic/Psychiatric: Alert, Oriented x3 Results/Procedures Lab Laboratory Tests 09/24/21 06:42 Patient resulted labs reviewed. Assessment/Plan Assessment and Plan Assess & Plan/Chief Complaint Rhabdomyolysis Continue IVF- slow rate Creatinine normal Monitor UOP- remains adequate CK trending down PT/OT COVID19 Currently on 2lpm- wean as able Decadron Not a candidate for Paxlovid or MAB Consider Actemra if worsens HTN HLD No acute needs, trend BP well controlled still DVt ppx: Lovenox Diagnosis/Problems Diagnosis/Problems (1) COVID-19 virus infection Status: Acute (2) Rhabdomyolysis Qualifiers: Rhabdomyolysis type: non-traumatic Qualified Codes: M62.82 - Rhabdo myolysis (3) Dementia Status: Acute Qualifiers: Dementia type: unspecified type Qualified Codes: F03.90 - Unspecified d ementia without behavioral disturbance (4) Lip ulceration Status: Acute (5) heat related illness DEBBIE SALOMON MD Sep 24, 2021 10:54
[2021-09-24] MEDS: ENOXAPARIN 40 MG/0.4 ML (LOVENOX) SYR SQ SCH (11:02)
[2021-09-24 12:34] VITALS: BP 130/78
[2021-09-24 15:56] VITALS: BP 117/62
[2021-09-24 20:21] VITALS: BP 154/72
[2021-09-24] MEDS: DONEPEZIL 5 MG (ARICEPT) TAB PO SCH (20:53)
[2021-09-25] VITALS (7 sets, daily range): BP systolic 119–157; BP diastolic 58–90
[2021-09-25] MEDS: dexAMETHasone 6 MG TAB (DECADRON) PO SCH (06:02)
[2021-09-25 06:51] LABS: HEMATOCRIT 43 % (40-54); HEMOGLOBIN 14.3 g/dL (13.3-17.7); MEAN CORPUSCULAR HEMOGLOBIN 30 pg (25-34); MEAN CORPUSCULAR HGB CONC 34 g/dL (32-36); MEAN CORPUSCULAR VOLUME 88 fL (80-99); MEAN PLATELET VOLUME 9.1 fL (9.0-12.2); PLATELET COUNT 248 10^3/uL (130-400); WHITE BLOOD COUNT 7.5 10^3/uL (4.3-11.0)
[2021-09-25 07:03] LABS: POTASSIUM 4.1 MMOL/L (3.6-5.0)
[2021-09-25 07:04] LABS: CALCIUM 8.5 MG/DL (8.5-10.1)
[2021-09-25 07:09] LABS: CREATININE SERUM 0.86 MG/DL (0.60-1.30)
[2021-09-25] MEDS: ACETAMINOPHEN 500 MG TAB (TYLENOL) PO PRN (09:04)
[2021-09-25] MEDS: ENOXAPARIN 40 MG/0.4 ML (LOVENOX) SYR SQ SCH (11:21)
--- NOTE | 2021-09-25 11:24 | Physical Therapy Daily Note ---
PT Daily Note-Current Subjective Patient more alert on this date. Agrees to PT. Mental Status Patient Orientation: Person, Time Attachments: Oxygen, Fu Catheter, IV Transfers SCALE: Activities may be completed with or without assistive devices. 5-Muzjimsbwm-yjetqto completes the activity by him/herself with no assistance from a helper. 5-Set-up or Clean-up Assistance-helper sets up or cleans up; patient completes activity. [place] assists only prior to or following the activity. 4-Supervision or Touching Assistance-helper provides verbal cues and/or touching/steadying and/or contact guard assistance as patient completes activity . Assistance may be provided throughout the activity or intermittently. 3-Partial/Moderate Assistance-helper does LESS THAN HALF the effort. [place] lifts, holds or supports trunk or limbs, but provides less than half the effort. 2-Substantial/Maximal Assistance-helper does MORE THAN HALF the effort. [place] lifts or holds trunk or limbs and provides more than half the effort. 8-Dgewxfeik-wsnuby does ALL the effort. Patient does none of the effort to complete the activity. Or, the assistance of 2 or more helpers is required for the patient to complete the activity. If activity was not attempted, code reason: 7-Patient Refused. 9-Not Applicable-not attempted and the patient did not perform the activity before the current illness, exacerbation or injury. 10-Not Attempted due to Environmental Limitations-(lack of equipment, weather restraints, etc.). 88-Not Attempted due to Medical Conditions or Safety Concerns. Lying to Sitting/Side of Bed(Q: 4 Sit to Stand (QC): 4 Chair/Drw-jk-Hiyop Xfer(QC): 4 Weight Bearing Full Weight Bearing Full Weight Bearing Gait Training Distance: 150' in room Walk 10 feet (QC): 4 Walk 50 ft with 2 Turns(QC): 4 Walk 150 ft (QC): 4 Gait Assistive Device: FWW safe and functional with no deviation Assessment Patient up in recliner with telesitter present. PT to increase activity as tolerated by patient. PT Short Term Goals Short Term Goals Time Frame: Sep 30, 2021 Roll Left & Right: 5 Sit to lyin Lying to sitting on side of be: 5 Sit to stand: 5 Chair/urg-jj-ckmmo transfer: 5 Toilet transfer: 5 Car transfer: 5 Walk 10 feet: 5 Walk 50 feet with two turns: 5 Walk 150 feet: 5 Walking 10ft on uneven surface: 5 1 step (curb): 5 4 steps: 5 12 steps: 5 Picking up objects: 5 PT Nursing Home Goals Nursing Home Goals PT Brick Burner Goals Time Frame: Oct 07, 2021 Roll Left & Right (QC): 6 Sit to Lying (QC): 6 Lying-Sitting on Side/Bed(QC): 6 Sit to Stand (QC): 6 Chair/Dkb-az-Enoat Xfer(QC): 6 Toilet Transfer (QC): 6 Car Transfer (QC): 6 Does the Patient Walk: Yes Walk 10 feet (QC): 6 Walk 50ft with 2 Turns (QC): 6 Walk 150 ft (QC): 6 Walking 10ft on Uneven Surface: 6 1 Step (curb) (QC): 6 4 Steps (QC): 6 12 Steps (QC): 6 Picking up an Object (QC): 6 PT Plan Treatment/Plan Treatment Plan: Continue Plan of Care Treatment Plan: Bed Mobility, Functional Activity Mark Anthony, Functional Strength, Gait, Safety, Therapeutic Exercise, Transfers Treatment Duration: Oct 07, 2021 Frequency: 6 times per week Estimated Hrs Per Day: .5 hour per day Time/GCodes Time In: [id number] Time Out: 1107 Total Billed Treatment Time: 10 Total Billed Treatment 1 visit FA 10 min NURIS FRANCO PT Sep 25, 2021 11:24
--- NOTE | 2021-09-25 12:31 | D/C HH Face to Face Order ---
D/C Face to Face Orders Instructions for Patient Via [facility], Patient Instructions/FollowUp: Take medications as prescrbied. Follow up with Dr. Brown in 1-2 weeks. Return with worsening shortness of breath, chest pain, or if you feel like you are getting worse. Physician to follow Patient: Kevin Discharge Diet for Home: No Restrictions Patient Data-Allergies,Ht & Wt Patient Allergies: Coded Allergies: No Allergy Information Available (Unverified , 10/22/13) Home Health Need/Face to Face Date of Face to Face: Sep 25, 2021 Clinical Findings: Generalized weakness and fatigue, Instability, Muscle weakness, Unsteady gait I have seen Pt vjvk-ix-anuf: Yes Discharged To: Home Diagnosis/Conditions: COVID Dementia Rhabdomyolysis Problems/Diagnosis/Condition: (1) COVID-19 virus infection (2) Dementia (3) Rhabdomyolysis Patient is Homebound due to: CognItive deficits, Severiano fall risk due to instabilty, Muscle weakness Homebound Status Due to the above stated illness, injury or surgical procedure (medical condition or diagnosis) and associated clinical findings, the patient is homebound because of his/her inability to leave home except with aid of a supportive device and/or person AND leaving the home requires a considerable and taxing effort or is medically contraindicated. Pt req the following assistanc: Aid of another person, [facility] Home Health Nursing Orders Home Health Services Order: Nursing Services, Retail Operations Specialist-Evaluate & Treat, Physical Therapy-Evaluate & Treat Home Health Infusion Therapy Line Start Date: Sep 22, 2021 Therapy Orders Therapy Orders: OT (must have SN or PT order), Physical Therapy Therapy Specific Orders: Eval assistive deivces, Teach enviro modifications/safety, Gait training, Increase strength/endurance Certify Stmt I certify that this patient is under my care and that I, a nurse practitioner or a physician; a personal care assistant working with me, had a face to face encounter that - meets the physician face to face encounter requirements with this patient as sabine jean. DEVORA OCHOA MD Sep 25, 2021 12:31
--- NOTE | 2021-09-25 15:57 | Progress Note - Hospitalist ---
Subjective HPI/CC On Admission Date Seen by Provider: Sep 25, 2021 Time Seen by Provider: 11:00 She is an 86-year-old male who presented to the emergency department after being found down. Apparently he was confused in the emergency department and was not able to provide much history. He is coming around this morning and able to fill in some of the details though still is unclear on some things. He reports he was working out in his barn and he fell night. He reports that he slept out by the barn that night and was still down all morning until his sister came by around noon yesterday. He is unsure how he fell. He was found to have COVID-19 and rhabdomyolysis and was admitted for further management. Subjective/Events-last exam He is sitting in his bedside chair. He wants to go home. He is not short of breath. He denies pain. He has been confused. He pulled his burrell out this a fternoon. I spoke with his daughter and she would be ok with facility placement for now while they figure out a plan for taking care of him at home. Objective Exam Vital Signs Vital Signs Date Time Temp Pulse Resp B/P (MAP) Pulse Ox O2 Delivery O2 Flow Rate FiO2 09/25/21 13:00 76 09/25/21 11:36 36.6 18 119/58 (78) 94 Nasal Cannula 1.00 09/23/21 10:59 28 Capillary Refill : Less Than 3 Seconds General Appearance: No Apparent Distress, Thin Respiratory: Lungs Clear, No Respiratory Distress Cardiovascular: Regular Rate, Rhythm, No Murmur Gastrointestinal: Normal Bowel Sounds, Soft Extremity: Normal Inspection, No Pedal Edema Neurologic/Psychiatric: Alert, Normal Mood/Affect Skin: Normal Color, Warm/Dry Results/Procedures Lab Laboratory Tests 09/25/21 06:45 Patient resulted labs reviewed. Imaging: Reviewed Imaging Report Assessment/Plan Assessment and Plan Assess & Plan/Chief Complaint Rhabdomyolysis Resolved Stop IV fluids COVID-19 No treatment required Oxygen evaluation negative, no home oxygen needed Debility Dementia Confused PT/OT SW consulted Pursuing SNF placement DVT prophylaxis: Lovenox Diagnosis/Problems Diagnosis/Problems (1) Rhabdomyolysis Qualifiers: Rhabdomyolysis type: non-traumatic Qualified Codes: M62.82 - Rhabdom yolysis (2) COVID-19 virus infection Status: Acute (3) Dementia Status: Acute Qualifiers: Dementia type: unspecified type Qualified Codes: F03.90 - Unspecified dementia without behavioral disturbance DEVORA OCHOA MD Sep 25, 2021 15:57
[2021-09-25] MEDS ORDERED: ONDANSETRON 4 MG/2 ML (SDV) Z0FRAN IV PRN (16:00)
[2021-09-25] MEDS ORDERED: CALCIUM CARBONATE 500 MG (TUMS) TAB.CHEW PO PRN (16:00)
[2021-09-25] MEDS ORDERED: ACETAMINOPHEN 325 MG TABLET PO PRN (16:00)
[2021-09-25] MEDS ORDERED: ANTACID SUSP 30 ML UDC (MYLANTA) PO PRN (16:00)
[2021-09-25] MEDS ORDERED: polyethylene glycoL POWDER 17 GM (MIRALAX) PACK PO PRN (16:00)
[2021-09-25] MEDS ORDERED: MILK OF MAGNESIA 400 MG/5 ML 30 ML UDC PO PRN (16:00)
[2021-09-25] MEDS ORDERED: LACTULOSE SYRUP 10GM/15ML (ENULOSE) 30ML UDC PO PRN (16:00)
[2021-09-25] MEDS ORDERED: BISACODYL 10 MG SUPP (DULCOLAX) PR PRN (16:00)
[2021-09-25] MEDS ORDERED: ONDANSETRON 4 MG (ZOFRAN) ORAL DISSOLVE TAB PO PRN (16:00)
[2021-09-25] MEDS: DOCUSATE SODIUM 100 MG (COLACE) CAP PO SCH (20:18)
[2021-09-25] MEDS: SENNOSIDES 8.6 MG (SENOKOT) TAB PO SCH (20:18)
[2021-09-25] MEDS: DONEPEZIL 5 MG (ARICEPT) TAB PO SCH (20:18)
[2021-09-25] MEDS: MELATONIN 3 MG TABLET PO PRN (20:18)
[2021-09-26 03:54] VITALS: BP 147/73
[2021-09-26 07:54] VITALS: BP 142/72
[2021-09-26] MEDS: DOCUSATE SODIUM 100 MG (COLACE) CAP PO SCH ×2 (09:26→20:40)
[2021-09-26] MEDS: SENNOSIDES 8.6 MG (SENOKOT) TAB PO SCH ×2 (09:26→20:41)
--- NOTE | 2021-09-26 09:27 | Physical Therapy Daily Note ---
PT Daily Note-Current Subjective Patient agrees to PT. Mental Status Patient Orientation: Person Transfers SCALE: Activities may be completed with or without assistive devices. 6-Vamirptyat-ptuzxes completes the activity by him/herself with no assistance from a helper. 5-Set-up or Clean-up Assistance-helper sets up or cleans up; patient completes activity. [place] assists only prior to or following the activity. 4-Supervision or Touching Assistance-helper provides verbal cues and/or touching/steadying and/or contact guard assistance as patient completes activity. Assistance may be provided throughout the activity or intermittently. 3-Partial/Moderate Assistance-helper does LESS THAN HALF the effort. [place] lifts, holds or supports trunk or limbs, but provides less than half the effort. 2-Substantial/Maximal Assistance-helper does MORE THAN HALF the effort. [place] lifts or holds trunk or limbs and provides more than half the effort. 3-Jvqmuujkz-zukgfr does ALL the effort. Patient does none of the effort to complete the activity. Or, the assistance of 2 or more helpers is required for the patient to complete the activity. If activity was not attempted, code reason: 7-Patient Refused. 9-Not Applicable-not attempted and the patient did not perform the activity before the current illness, exacerbation or injury. 10-Not Attempted due to Environmental Limitations-(lack of equipment, weather restraints, etc.). 88-Not Attempted due to Medical Conditions or Safety Concerns. Sit to Stand (QC): 4 Chair/Sip-yl-Ncukl Xfer(QC): 4 Weight Bearing Full Weight Bearing Full Weight Bearing Gait Training Distance: 75' Walk 10 feet (QC): 4 Walk 50 ft with 2 Turns(QC): 4 Gait Assistive Device: None declined FWW use Assessment Patient up in recliner after session. PT assisted patient with changing gown and socks due to patient had blood on them from pulling out catheter and IV. Patient up in recliner with telesitter and breakfast in situ PT Short Term Goals Short Term Goals Time Frame: Sep 30, 2021 Roll Left & Right: 5 Sit to lyin Lying to sitting on side of be: 5 Sit to stand: 5 Chair/qov-ef-prspf transfer: 5 Toilet transfer: 5 Car transfer: 5 Walk 10 feet: 5 Walk 50 feet with two turns: 5 Walk 150 feet: 5 Walking 10ft on uneven surface: 5 1 step (curb): 5 4 steps: 5 12 steps: 5 Picking up objects: 5 PT It Systems Engineer Goals It Systems Engineer Goals PT Group Home Goals Time Frame: Oct 07, 2021 Roll Left & Right (QC): 6 Sit to Lying (QC): 6 Lying-Sitting on Side/Bed(QC): 6 Sit to Stand (QC): 6 Chair/Oya-wy-Dqjnt Xfer(QC): 6 Toilet Transfer (QC): 6 Car Transfer (QC): 6 Does the Patient Walk: Yes Walk 10 feet (QC): 6 Walk 50ft with 2 Turns (QC): 6 Walk 150 ft (QC): 6 Walking 10ft on Uneven Surface: 6 1 Step (curb) (QC): 6 4 Steps (QC): 6 12 Steps (QC): 6 Picking up an Object (QC): 6 PT Plan Treatment/Plan Treatment Plan: Continue Plan of Care Treatment Plan: Bed Mobility, Functional Activity Mark Anthony, Functional Strength, Gait, Safety, Therapeutic Exercise, Transfers Treatment Duration: Oct 07, 2021 Frequency: 6 times per week Estimated Hrs Per Day: .5 hour per day Time/GCodes Time In: 853 Time Out: 904 Total Billed Treatment Time: 11 Total Billed Treatment 1 visit FA 11 min NURIS FRANCO PT Sep 26, 2021 09:27
[2021-09-26 11:23] VITALS: BP 145/79
[2021-09-26] MEDS: ENOXAPARIN 40 MG/0.4 ML (LOVENOX) SYR SQ SCH (13:35)
[2021-09-26 15:35] VITALS: BP 146/66
--- NOTE | 2021-09-26 16:50 | Progress Note - Hospitalist ---
Subjective HPI/CC On Admission Date Seen by Provider: Sep 26, 2021 Time Seen by Provider: 10:40 She is an 86-year-old male who presented to the emergency department after being found down. Apparently he was confused in the emergency department and was not able to provide much history. He is coming around this morning and able to fill in some of the details though still is unclear on some things. He reports he was working out in his barn and he fell night. He reports that he slept out by the barn that night and was still down all morning until h is sister came by around noon yesterday. He is unsure how he fell. He was found to have COVID-19 and rhabdomyolysis and was admitted for further management. Subjective/Events-last exam He is feeling ok. He is confused. He denies shortness of breath. He denies pain. Objective Exam Vital Signs Vital Signs Date Time Temp Pulse Resp B/P (MAP) Pulse Ox O2 Delivery O2 Flow Rate FiO2 09/26/21 15:35 36.6 86 20 146/66 (92) 94 Room Air 09/25/21 11:36 1.00 09/23/21 10:59 28 Capillary Refill : Less Than 3 Seconds General Appearance: No Apparent Distress, WD/WN Respiratory: Lungs Clear, No Respiratory Distress Cardiovascular: Regular Rate, Rhythm, No Murmur Gastrointestinal: Normal Bowel Sounds, Soft Extremity: Normal Inspection, No Pedal Edema Neurologic/Psychiatric: Alert, Disoriented Results/Procedures Lab Patient resulted labs reviewed. Imaging: Reviewed Imaging Report Assessment/Plan Assessment and Plan Assess & Plan/Chief Complaint COVID-19 No treatment required Oxygen evaluation negative, no home oxygen needed Debility Dementia PT/OT SW consulted Pursuing SNF placement DVT prophylaxis: Lovenox Rhabdomyolysis, resolved Diagnosis/Problems Diagnosis/Problems (1) Rhabdomyolysis Qualifiers: Rhabdomyolysis type: non-traumatic Qualified Codes: M62.82 - Rhabdomyolysis (2) COVID-19 virus infection Status: Acute (3) Dementia Status: Acute Qualifiers: Dementia type: unspecified type Qualified Codes: F03.90 - Unspecified dementia without behavioral disturbance DEVORA OCHOA MD Sep 26, 2021 16:50
[2021-09-26 19:26] VITALS: BP 145/69
[2021-09-26] MEDS: MELATONIN 3 MG TABLET PO PRN (20:41)
[2021-09-26] MEDS: DONEPEZIL 5 MG (ARICEPT) TAB PO SCH (20:41)
[2021-09-26 23:48] VITALS: BP 147/71
[2021-09-27 03:46] VITALS: BP 135/62
[2021-09-27 07:53] VITALS: BP 151/74
[2021-09-27] MEDS: DOCUSATE SODIUM 100 MG (COLACE) CAP PO SCH ×2 (09:34→21:47)
[2021-09-27] MEDS: SENNOSIDES 8.6 MG (SENOKOT) TAB PO SCH ×2 (09:34→21:47)
--- NOTE | 2021-09-27 11:06 | Progress Note - Hospitalist ---
Subjective HPI/CC On Admission Date Seen by Provider: Sep 27, 2021 Time Seen by Provider: 10:00 She is an 86-year-old male who presented to the emergency department after being found down. Apparently he was confused in the emergency department and was not able to provide much history. He is coming around this morning and able to fill in some of the details though still is unclear on some things. He reports he was working out in his barn and he fell night. He reports that he slept out by the barn that night and was still down all morning until h is sister came by around noon yesterday. He is unsure how he fell. He was found to have COVID-19 and rhabdomyolysis and was admitted for further management. Subjective/Events-last exam He is sitting in his chair. He is confused. He denies pain. He denies shortness of breath. Objective Exam Vital Signs Vital Signs Date Time Temp Pulse Resp B/P (MAP) Pulse Ox O2 Delivery O2 Flow Rate FiO2 09/27/21 08:56 60 93 21 09/27/21 08:19 Room Air 09/27/21 07:53 36.5 18 151/74 (99) 09/25/21 11:36 1.00 Capillary Refill : Less Than 3 Seconds General Appearance: No Apparent Distress, Thin Respiratory: Lungs Clear, No Respiratory Distress Cardiovascular: Regular Rate, Rhythm, No Murmur Gastrointestinal: Normal Bowel Sounds, Soft Extremity: Normal Inspection, No Pedal Edema Neurologic/Psychiatric: Alert, Normal Mood/Affect Results/Procedures Lab Patient resulted labs reviewed. Imaging: Reviewed Imaging Report Assessment/Plan Assessment and Plan Assess & Plan/Chief Complaint Debility Dementia PT/OT SW following [facility], Dr Spencer (internal medicine), denied skilled benefits Functional status significantly decreased from baseline Unsafe to return home at this time Lives alone, found down prior to arrival Family unable to provide support at this time due to COVID isolation High morbidity/mortality risk if returns home at this time, appealing [facility] denial COVID-19 No treatment required Oxygen evaluation negative, no home oxygen needed Unable to transfer to skilled facility due to isolation until 10/04 DVT prophylaxis: Lovenox Rhabdomyolysis, resolved Diagnosis/Problems Diagnosis/Problems (1) Rhabdomyolysis Qualifiers: Rhabdomyolysis type: non-traumatic Qualified Codes: M62.82 - Rhabdomyolysis (2) COVID-19 virus infection Status: Acute (3) Dementia Status: Acute Qualifiers: Dementia type: unspecified type Qualified Codes: F03.90 - Unspecified dem entia without behavioral disturbance (4) Debility Status: Acute DEVORA OCHOA MD Sep 27, 2021 11:06
[2021-09-27 11:48] VITALS: BP 124/51
[2021-09-27] MEDS: ENOXAPARIN 40 MG/0.4 ML (LOVENOX) SYR SQ SCH (13:23)
--- NOTE | 2021-09-27 13:34 | Physical Therapy Daily Note ---
PT Daily Note-Current Subjective Patient lying supine in bed upon PT arrival, agreeable to treatment. Reports 0/10 pain currently. Mental Status Patient Orientation: Person Transfers SCALE: Activities may be completed with or without assistive devices. 9-Axqfznlltx-xyszmol completes the activity by him/herself with no assistance from a helper. 5-Set-up or Clean-up Assistance-helper sets up or cleans up; patient completes activity. [place] assists only prior to or following the activity. 4-Supervision or Touching Assistance-helper provides verbal cues and/or touching/steadying and/or contact guard assistance as patient completes activity. Assistance may be provided throughout the activity or intermittently. 3-Partial/Moderate Assistance-helper does LESS THAN HALF the effort. [employer] lifts, holds or supports trunk or limbs, but provides less than half the effort. 2-Substantial/Maximal Assistance-helper does MORE THAN HALF the effort. [employer] lifts or holds trunk or limbs and provides more than half the effort. 7-Boxvyagdf-knwnqg does ALL the effort. Patient does none of the effort to complete the activity. Or, the assistance of 2 or more helpers is required for the patient to complete the activity. If activity was not attempted, code reason: 7-Patient Refused. 9-Not Applicable-not attempted and the patient did not perform the activity before the current illness, exacerbation or injury. 10-Not Attempted due to Environmental Limitations-(lack of equipment, weather restraints, etc.). 88-Not Attempted due to Medical Conditions or Safety Concerns. Roll Left & Right (QC): 4 Sit to Lying (QC): 4 Lying to Sitting/Side of Bed(Q: 4 Sit to Stand (QC): 4 Chair/Umc-ts-Dbplx Xfer(QC): 4 Weight Bearing Full Weight Bearing Full Weight Bearing Gait Training Does the Patient Walk?: Yes Distance: 110 Walk 10 feet (QC): 4 Walk 50 ft with 2 Turns(QC): 4 Gait Persons Needed: 1 Gait Assistive Device: FWW Assessment Current Status: Fair Progress Nurse reports patient has been getting up to the BSC by himself. Upon PT arrival, patient presents with BM smeared on the BSC, on him, on his bed sheets and on his gown. Patient was cleaned with assistance of RUBBER BOOTS AND SHOES REPAIRER. Patient performs all bed mobility and observed transfers with SBA. Patient ambulates 110 feet in room with FWW, with SBA and verbal cues for safety, progression, posture. Patient in chair post treatment with all needs met, nursing notified, call light in hand, and chair alarm activated. PT Short Term Goals Short Term Goals Time Frame: Sep 30, 2021 Roll Left & Right: 5 Sit to lyin Lying to sitting on side of be: 5 Sit to stand: 5 Chair/vne-rg-cxctz transfer: 5 Toilet transfer: 5 Car transfer: 5 Walk 10 feet: 5 Walk 50 feet with two turns: 5 Walk 150 feet: 5 Walking 10ft on uneven surface: 5 1 step (curb): 5 4 steps: 5 12 steps: 5 Picking up objects: 5 PT Mcc Goals Occupational Therapist'S Assistant Goals PT Mcc Goals Time Frame: Oct 07, 2021 Roll Left & Right (QC): 6 Sit to Lying (QC): 6 Lying-Sitting on Side/Bed(QC): 6 Sit to Stand (QC): 6 Chair/Thk-bu-Qckyj Xfer(QC): 6 Toilet Transfer (QC): 6 Car Transfer (QC): 6 Does the Patient Walk: Yes Walk 10 feet (QC): 6 Walk 50ft with 2 Turns (QC): 6 Walk 150 ft (QC): 6 Walking 10ft on Uneven Surface: 6 1 Step (curb) (QC): 6 4 Steps (QC): 6 12 Steps (QC): 6 Picking up an Object (QC): 6 PT Plan Treatment/Plan Treatment Plan: Continue Plan of Care Treatment Plan: Bed Mobility, Functional Activity Mark Anthony, Functional Strength, Gait, Safety, Therapeutic Exercise, Transfers Treatment Duration: Oct 07, 2021 Frequency: 6 times per week Estimated Hrs Per Day: .5 hour per day Patient and/or Family Agrees t: Yes Safety Risks/Education Patient Education: Gait Training, Transfer Techniques Teaching Recipient: Patient Teaching Methods: Demonstration, Discussion Response to Teaching: Reinforcement Needed Time/GCodes Time In: 906 Time Out: 924 Total Billed Treatment Time: 18 Total Billed Treatment Visit, AMPARO Pedro PT Sep 27, 2021 13:34
[2021-09-27 16:38] VITALS: BP 152/76
[2021-09-27 19:55] VITALS: BP 135/70
[2021-09-27] MEDS: MELATONIN 3 MG TABLET PO PRN (21:47)
[2021-09-27] MEDS: DONEPEZIL 5 MG (ARICEPT) TAB PO SCH (21:48)
[2021-09-28] VITALS (7 sets, daily range): BP systolic 123–161; BP diastolic 62–81
[2021-09-28] MEDS: DOCUSATE SODIUM 100 MG (COLACE) CAP PO SCH ×2 (09:15→20:42)
[2021-09-28] MEDS: SENNOSIDES 8.6 MG (SENOKOT) TAB PO SCH ×2 (09:15→20:43)
--- NOTE | 2021-09-28 10:04 | Physical Therapy Daily Note ---
PT Daily Note-Current Subjective Patient agrees to PT. Transfers SCALE: Activities may be completed with or without assistive devices. 4-Tblfhvzpry-cctgcns completes the activity by him/herself with no assistance from a helper. 5-Set-up or Clean-up Assistance-helper sets up or cleans up; patient completes activity. [place] assists only prior to or following the activity. 4-Supervision or Touching Assistance-helper provides verbal cues and/or touching/steadying and/or contact guard assistance as patient completes activity. Assistance may be provided throughout the activity or intermittently. 3-Partial/Moderate Assistance-helper does LESS THAN HALF the effort. [place] lifts, holds or supports trunk or limbs, but provides less than half the effort. 2-Substantial/Maximal Assistance-helper does MORE THAN HALF the effort. [place] lifts or holds trunk or limbs and provides more than half the effort. 6-Qvzmrlwya-lmpkmb does ALL the effort. Patient does none of the effort to complete the activity. Or, the assistance of 2 or more helpers is required for the patient to complete the activity. If activity was not attempted, code reason: 7-Patient Refused. 9-Not Applicable-not attempted and the patient did not perform the activity before the current illness, exacerbation or injury. 10-Not Attempted due to Environmental Limitations-(lack of equipment, weather restraints, etc.). 88-Not Attempted due to Medical Conditions or Safety Concerns. Sit to Stand (QC): 4 Chair/Iht-ma-Dpnkw Xfer(QC): 4 Weight Bearing Full Weight Bearing Full Weight Bearing Gait Training Distance: 200' in room Walk 10 feet (QC): 4 Walk 50 ft with 2 Turns(QC): 4 Walk 150 ft (QC): 4 Gait Assistive Device: None functional gait sequence SBA for safety/FWW not utilized on this date. Assessment Patient up in recliner with breakfast in situ. Patient progressing with treatment plan. PT Short Term Goals Short Term Goals Time Frame: Sep 30, 2021 Roll Left & Right: 5 Sit to lyin Lying to sitting on side of be: 5 Sit to stand: 5 Chair/ypn-xw-yafni transfer: 5 Toilet transfer: 5 Car transfer: 5 Walk 10 feet: 5 Walk 50 feet with two turns: 5 Walk 150 feet: 5 Walking 10ft on uneven surface: 5 1 step (curb): 5 4 steps: 5 12 steps: 5 Picking up objects: 5 PT Prison Goals Prison Goals PT Drywall Professional Goals Time Frame: Oct 07, 2021 Roll Left & Right (QC): 6 Sit to Lying (QC): 6 Lying-Sitting on Side/Bed(QC): 6 Sit to Stand (QC): 6 Chair/Gym-rv-Dnnvh Xfer(QC): 6 Toilet Transfer (QC): 6 Car Transfer (QC): 6 Does the Patient Walk: Yes Walk 10 feet (QC): 6 Walk 50ft with 2 Turns (QC): 6 Walk 150 ft (QC): 6 Walking 10ft on Uneven Surface: 6 1 Step (curb) (QC): 6 4 Steps (QC): 6 12 Steps (QC): 6 Picking up an Object (QC): 6 PT Plan Treatment/Plan Treatment Plan: Continue Plan of Care Treatment Plan: Bed Mobility, Functional Activity Makr Anthony, Functional Strength, Gait, Safety, Therapeutic Exercise, Transfers Treatment Duration: Oct 07, 2021 Frequency: 6 times per week Estimated Hrs Per Day: .5 hour per day Patient and/or Family Agrees t: Yes Time/GCodes Time In: 841 Time Out: 851 Total Billed Treatment Time: 10 Total Billed Treatment 1 visit FA 10 min NURIS FRANCO PT Sep 28, 2021 10:04
[2021-09-28] MEDS: ENOXAPARIN 40 MG/0.4 ML (LOVENOX) SYR SQ SCH (11:39)
--- NOTE | 2021-09-28 11:52 | Occupational Therapy Eval ---
OT Evaluation-General/PLF Medical Diagnosis Admission Date Sep 23, 2021 at 16:04 Medical Diagnosis: rhabdomylitis, Covid 19 Onset Date: Sep 22, 2021 Therapy Diagnosis Therapy Diagnosis: Dementia Precautions Precautions/Isolations: Airborne Isolation, Contact Isolation, Droplet Isolation, Fall Prevention Referral Physician: Arleen Silver Reason: Evaluation/Treatment Medical History Pertinent Medical History: Dementia Current History Patient was apparently found unresponsive in his yard. Pt is very [place], thus causing Difficulty gathering PLOF information from the patient. Per RN, pt lives alone. Unsure if supportive family is available. Reviewed History: Yes Social History Current Living Status: Alone ADL-Prior Level of Function SCALE: Activities may be completed with or without assistive devices. 3-Mhjdyhzsei-ftmexdl completes the activity by him/herself with no assistance from a helper. 5-Set-up or Clean-up Assistance-helper sets up or cleans up; patient completes activity. [place] assists only prior to or following the activity. 4-Supervision or Touching Assistance-helper provides verbal cues and/or touching/steadying and/or contact guard assistance as patient completes activity. Assistance may be provided throughout the activity or intermittently. 3-Partial/Moderate Assistance-helper does LESS THAN HALF the effort. [place] lifts, holds or supports trunk or limbs, but provides less than half the effort. 2-Substantial/Maximal Assistance-helper does MORE THAN HALF the effort. [place] lifts or holds trunk or limbs and provides more than half the effort. 6-Wdwybcedr-egfifu does ALL the effort. Patient does none of the effort to complete the activity. Or, the assistance of 2 or more helpers is required for the patient to complete the activity. If activity was not attempted, code reason: 7-Patient Refused. 9-Not Applicable-not attempted and the patient did not perform the activity before the current illness, exacerbation or injury. 10-Not Attempted due to Environmental Limitations-(lack of equipment, weather restraints, etc.). 88-Not Attempted due to Medical Conditions or Safety Concerns. Self Care: Unknown Functional Cognition: Unknown OT Current Status Subjective Pt denies pain, agreeable to evaluation. Appearance Pt returned to sitting in recliner, RN in room at OT departure. Mental Status/Objective Patient Orientation: Person Current Glasses/Contacts: No Hearing Aids: Yes Hand Dominance: Right Upper Extremity ROM WNL Upper Extremity Strength 4/5 throughout ADL-Treatment Eating (QC): 6 Lower Body Dressing (QC): 5 (per clinical judgment) On/Off Footwear (QC): 6 Toileting Hygiene (QC): 6 Pt sitting in recliner at OT arrival. He is very [place] and often needs visual cues. He was able to don/doff bilateral socks without effort. He stood independently and ambulated in/out of bathroom with supervision for safety, no AD used. He stood at toilet to void and at sink to wash his hands, no LOB observed. Pt does have a speedy gait but no unsteadiness exhibited. Pt does have history of dementia and if returning home could benefit from frequent checks from family/friends. Education OT Patient Education: Purpose of tx/functional activities, Safety issues Teaching Recipient: Patient Teaching Methods: Demonstration, Discussion Response to Teaching: Return Demonstration OT Husbandry Person Goals Husbandry Person Goals 1=Demonstrate adherence to instructed precautions during ADL tasks. 2=Patient will verbalize/demonstrate understanding of assistive devices/modific ations for ADL. 3=Patient will improve strength/tolerance for activity to enable patient to perform ADL's. OT Education/Plan Problem List/Assessment Assessment: No Skilled OT Needs ID'd Discharge Recommendations Plan/Recommendations: Discontinue OT Therapy Discharge Recommendati: Home & Family Treatment Plan/Plan of Care Treatment,Training & Education: Yes Patient would benefit from OT for education, treatment and training to promote independence in ADL's, mobility, safety and/or upper extremity function for ADL's. Plan of Care: ADL Retraining, Functional Mobility Treatment Duration: Sep 28, 2021 Frequency: 1 time per week Estimated Hrs Per Day: .25 hour per day Agreement: Yes Time/GCodes Start Time: 11:33 Stop Time: 11:44 Total Time Billed (hr/min): 11 Billed Treatment Time 1 visit [place] OT Sep 28, 2021 11:52
--- NOTE | 2021-09-28 16:00 | Progress Note - Hospitalist ---
Subjective HPI/CC On Admission Date Seen by Provider: Sep 28, 2021 Time Seen by Provider: 10:40 She is an 86-year-old male who presented to the emergency department after being found down. Apparently he was confused in the emergency department and was not able to provide much history. He is coming around this morning and able to fill in some of the details though still is unclear on some things. He reports he was working out in his barn and he fell night. He reports that he slept out by the barn that night and was still down all morning until h is sister came by around noon yesterday. He is unsure how he fell. He was found to have COVID-19 and rhabdomyolysis and was admitted for further management. Subjective/Events-last exam He is doing well. He has no complaints. He denies pain. He denies shortness of breath. Objective Exam Vital Signs Vital Signs Date Time Temp Pulse Resp B/P (MAP) Pulse Ox O2 Delivery O2 Flow Rate FiO2 09/28/21 15:52 36.6 83 18 132/62 (85) 92 Room Air 09/27/21 08:56 21 09/25/21 11:36 1.00 Capillary Refill : Less Than 3 Seconds General Appearance: No Apparent Distress, Thin Respiratory: Lungs Clear, No Respiratory Distress Cardiovascular: Regular Rate, Rhythm, No Murmur Gastrointestinal: Normal Bowel Sounds, Soft Extremity: Normal Inspection, No Pedal Edema Neurologic/Psychiatric: Alert, picker packer II-XII Norm as Tested Skin: Normal Color, Warm/Dry Results/Procedures Lab Patient resulted labs reviewed. Imaging: Reviewed Imaging Report Assessment/Plan Assessment and Plan Assess & Plan/Chief Complaint Debility Dementia [facility] denied skilled benefits Functional status significantly decreased from baseline Unsafe to return home at this time Lives alone, found down prior to arrival Family unable to provide support at this time due to COVID isolation High morbidity/mortality risk if returns home at this time, appealing [facility] denial COVID-19 No treatment required Oxygen evaluation negative, no home oxygen needed Unable to transfer to skilled facility due to isolation until 10/07 DVT prophylaxis: Lovenox Rhabdomyolysis, resolved Diagnosis/Problems Diagnosis/Problems (1) Rhabdomyolysis Qualifiers: Rhabdomyolysis type: non-traumatic Qualified Codes: M62.82 - Rhabdomyolysis (2) COVID-19 virus infection Status: Acute (3) Dementia Status: Acute Qualifiers: Dementia type: unspecified type Qualified Codes: F03.90 - Unspecified dementia without behavioral disturbance (4) Debility Status: Acute DEVORA OCHOA MD Sep 28, 2021 16:00
[2021-09-28] MEDS: DONEPEZIL 5 MG (ARICEPT) TAB PO SCH (20:43)
[2021-09-29 03:54] VITALS: BP 159/66
[2021-09-29 07:37] VITALS: BP 130/76
[2021-09-29] MEDS: SENNOSIDES 8.6 MG (SENOKOT) TAB PO SCH (09:42)
[2021-09-29] MEDS: DOCUSATE SODIUM 100 MG (COLACE) CAP PO SCH (09:42)
--- NOTE | 2021-09-29 10:03 | Physical Therapy Daily Note ---
PT Daily Note-Current Subjective Patient in bed and agrees to PT. Transfers SCALE: Activities may be completed with or without assistive devices. 2-Gsbrdlvbif-jncvdjn completes the activity by him/herself with no assistance from a helper. 5-Set-up or Clean-up Assistance-helper sets up or cleans up; patient completes activity. [place] assists only prior to or following the activity. 4-Supervision or Touching Assistance-helper provides verbal cues and/or touching/steadying and/or contact guard assistance as patient completes activity. Assistance may be provided throughout the activity or intermittently. 3-Partial/Moderate Assistance-helper does LESS THAN HALF the effort. [place] lift s, holds or supports trunk or limbs, but provides less than half the effort. 2-Substantial/Maximal Assistance-helper does MORE THAN HALF the effort. [place] lifts or holds trunk or limbs and provides more than half the effort. 1-Dayakkctl-vshzcs does ALL the effort. Patient does none of the effort to complete the activity. Or, the assistance of 2 or more helpers is required for the patient to complete the activity. If activity was not attempted, code reason: 7-Patient Refused. 9-Not Applicable-not attempted and the patient did not perform the activity before the current illness, exacerbation or injury. 10-Not Attempted due to Environmental Limitations-(lack of equipment, weather restraints, etc.). 88-Not Attempted due to Medical Conditions or Safety Concerns. Lying to Sitting/Side of Bed(Q: 6 Sit to Stand (QC): 4 Chair/Wga-gm-Dudew Xfer(QC): 4 Weight Bearing Full Weight Bearing Full Weight Bearing Gait Training Distance: 200' in room Walk 10 feet (QC): 4 Walk 50 ft with 2 Turns(QC): 4 Walk 150 ft (QC): 4 Gait Assistive Device: None safe and functional with no deviation Assessment Patient up in recliner with needs met. Patient instructed to call for ass istance with chair alarm activated and telesitter present. PT Short Term Goals Short Term Goals Time Frame: Sep 30, 2021 Roll Left & Right: 5 Sit to lyin Lying to sitting on side of be: 5 Sit to stand: 5 Chair/orm-bb-jqhpy transfer: 5 Toilet transfer: 5 Car transfer: 5 Walk 10 feet: 5 Walk 50 feet with two turns: 5 Walk 150 feet: 5 Walking 10ft on uneven surface: 5 1 step (curb): 5 4 steps: 5 12 steps: 5 Picking up objects: 5 PT Aquatics Assistant Department Head Goals Alf Goals PT Alf Goals Time Frame: Oct 07, 2021 Roll Left & Right (QC): 6 Sit to Lying (QC): 6 Lying-Sitting on Side/Bed(QC): 6 Sit to Stand (QC): 6 Chair/Ixz-ku-Yuoul Xfer(QC): 6 Toilet Transfer (QC): 6 Car Transfer (QC): 6 Does the Patient Walk: Yes Walk 10 feet (QC): 6 Walk 50ft with 2 Turns (QC): 6 Walk 150 ft (QC): 6 Walking 10ft on Uneven Surface: 6 1 Step (curb) (QC): 6 4 Steps (QC): 6 12 Steps (QC): 6 Picking up an Object (QC): 6 PT Plan Treatment/Plan Treatment Plan: Continue Plan of Care Treatment Plan: Bed Mobility, Functional Activity Mark Anthony, Functional Strength, Gait, Safety, Therapeutic Exercise, Transfers Treatment Duration: Oct 07, 2021 Frequency: 6 times per week Estimated Hrs Per Day: .5 hour per day Patient and/or Family Agrees t: Yes Time/GCodes Time In: 800 Time Out: 810 Total Billed Treatment Time: 10 Total Billed Treatment 1 visit FA 10 min NURIS FRANCO PT Sep 29, 2021 10:03
[2021-09-29 11:18] VITALS: BP 136/58
[2021-09-29] MEDS: ENOXAPARIN 40 MG/0.4 ML (LOVENOX) SYR SQ SCH (11:39)
[2021-09-29 15:18] VITALS: BP 136/58
--- NOTE | 2021-09-29 15:50 | Discharge Summary ---
Discharge Summary Hospital Course Was the Problem List Reviewed?: Yes Problems/Dx: (1) Rhabdomyolysis Qualifiers: Qualified Codes: M62.82 - Rhabdomyolysis (2) COVID-19 virus infection Status: Acute (3) Dementia Status: Acute Qualifiers: Qualified Codes: F03.90 - Unspecified dementia without behavioral disturbance (4) Debility Status: Acute Hospital Course Date of Admission: Sep 23, 2021 at 16:04 Admission Diagnosis : Rhabdomyolysis, fall, COVID-19 Family Physician/Provider: Boris Brown MD Date of Discharge: 09/29/21 Discharge Diagnosis: Rhabdomyolysis, fall, COVID-19, dementia, debility Hospital Course: Dangelo Tsai is an 86 year old male who presented after being found down at home. He was admitted with rhabdomyolysis and treated with IV fluids. He was also incidentally found to have COVID-19. He did not require any treatment or supplemental oxygen. He was also debilitated and was set up [facility] home health care. He has dementia and appeared to be at his baseline per family reports. He was discharged home in stable medical condition. Labs and Pending Lab Test: Home Meds Active Reported Donepezil HCl 5 Mg Tablet 5 Mg PO HS Assessment/Pt Instructions See instructions Discharge Planning: >30 minutes discharge planning Discharge Instructions Discharge Diet: No Restrictions Activity as Tolerated: Yes Discharge Physical Examination Vital Signs Vital Signs Date Time Temp Pulse Resp B/P (MAP) Pulse Ox O2 Delivery O2 Flow Rate FiO2 09/29/21 15:18 36.6 84 18 136/58 94 Room Air 1.00 09/27/21 08:56 21 General Appearance: No Apparent Distress, Thin Respiratory: Lungs Clear, No Respiratory Distress Cardiovascular: Regular Rate, Rhythm, No Murmur Gastrointestinal: Normal Bowel Sounds, Soft Extremity: Normal Inspection, No Pedal Edema Skin: Normal Color, Warm/Dry Neurologic/Psychiatric: Alert, Disoriented, Motor Weakness Allergies: Coded Allergies: No Allergy Information Available (Unverified , 10/22/13) Copy Copies To 1: BORIS BROWN MD Discharge Summary Date of Admission Sep 23, 2021 at 16:04 Date of Discharge Sep 29, 2021 at 15:19 Discharge Date: Sep 29, 2021 Discharge Time: 15:19 Admission Diagnosis Rhabdomyolysis Discharge Diagnosis Debility Dementia COVID-19 Rhabdomyolysis (1) Rhabdomyolysis Qualifiers: Qualified Codes: M62.82 - Rhabdomyolysis (2) COVID-19 virus infection Status: Acute (3) Dementia Status: Acute Qualifiers: Qualified Codes: F03.90 - Unspecified dementia without behavioral disturbance (4) Debility Status: Acute DEVORA OCHOA MD Sep 29, 2021 15:49
== END 2021-09-29 15:19 | disposition home health service (06) | DRG 557 ==
LOC: EDUNIT# 17:45 → ER 17:47 → 4TH 20:05 → OBSVTOIN 09-23 16:04
PROVIDERS: ADMIT Internal Medicine; ATTEND Internal Medicine
PROC: 8E0ZXY6 Isolation (ICD-10-PCS; principal; 2021-09-23)
DX: M62.82 Rhabdomyolysis (principal); U07.1 COVID-19; Z79.82 Long term (current) use of aspirin; Z79.899 Other long term (current) drug therapy; F03.90 Unspecified dementia, unspecified severity, without behavioral disturbance, psychotic disturbance, mood disturbance, and anxiety; W18.30XA Fall on same level, unspecified, initial encounter; Y93.89 Activity, other specified; Y92.096 Garden or yard of other non-institutional residence as the place of occurrence of the external cause; E78.00 Pure hypercholesterolemia, unspecified; I10 Essential (primary) hypertension; N40.0 Benign prostatic hyperplasia without lower urinary tract symptoms; K13.0 Diseases of lips; T67.9XXA Effect of heat and light, unspecified, initial encounter
CPT/HCPCS: 36415; 51702; 70450; 71045; 71275; 72125; 72128; 72131; 72170; 74177; 80048; 80053; 80320; 81000; 82550; 82553; 82947; 83735; 83874; 83880; 84484; 85007; 85025; 85027; 85610; 85730; 87636; 93005; 93041; 96360; 96361; G0378

== ENCOUNTER → 2021-09-22 | Outpatient (CLI) | payer MEDICARE, OTHER ==
[~2021-09-22] MED LIST changes: +DONE5TAB30 PO
== END | disposition home or self-care (01) ==
LOC: PREOP 05:31
PROVIDERS: ATTEND Otolaryngology Otolaryngology/Facial Plastic Surgery
DX: Z01.818 Encounter for other preprocedural examination (principal)

== ENCOUNTER → 2021-11-06 | Outpatient (CLI) | payer MEDICARE, OTHER ==
[~2021-11-06] VITALS: Ht 183 cm; Wt 65.3 kg
== END ==
LOC: PREOP 11:52
PROVIDERS: ATTEND Otolaryngology Otolaryngology/Facial Plastic Surgery
DX: Z01.818 Encounter for other preprocedural examination (principal); C44.1192 Basal cell carcinoma of skin of left lower eyelid, including canthus

== ENCOUNTER 2021-11-17 06:53 | Day surgery (SDC) | payer MEDICARE ==
[~2021-11-17] VITALS: Ht 183 cm; Wt 65.3 kg
[2021-11-17] VITALS (10 sets, daily range): BP systolic 151–183; BP diastolic 81–99
[2021-11-17] MEDS ORDERED: LIDOCAINE PF 2% 5 ML (XYLOCAINE) VIAL ONE (07:30)
[2021-11-17] MEDS ORDERED: proPOfol 200 MG/20 ML (DIPRIVAN) VIAL IV ONE (07:30)
[2021-11-17] MEDS ORDERED: fentaNYL INJ 100 MCG/2 ML AMP ONE (07:30)
[2021-11-17] MEDS ORDERED: ONDANSETRON 4 MG/2 ML (SDV) Z0FRAN ONE (07:30)
[2021-11-17] MEDS ORDERED: MUPIROCIN 2% OINT 22 GM (BACTROBAN) TUBE ONE (07:37)
[2021-11-17] MEDS ORDERED: LIDOCAINE/EPI 2% 1:200,00 (XYLOCAINE) 20 ML VIAL ONE (07:37)
[2021-11-17] MEDS: LACTATED RINGERS 1,000 ML IV PRN ×2 (07:45→09:42)
--- NOTE | 2021-11-17 07:58 | Progress Note-Pre Operative ---
Pre-Operative Progress Note Date of Available H&P: Nov 17, 2021 Date H&P Reviewed: Nov 17, 2021 Time H&P Reviewed: 07:15 History & Physical: H&P Reviewed, Patient Examed, No changes noted Changes from last HP none Pre-Operative Diagnosis: Lower Lip Lesion, Left Eyelid Lesion JEFERSON BETANCOURT MD Nov 17, 2021 07:58
[2021-11-17 07:59] LABS: BASOPHILS % (AUTO) 1 % (0-10); EOSINOPHILS # (AUTO) 0.1 10^3/uL (0.0-0.3); EOSINOPHILS % (AUTO) 2 % (0-10); HEMATOCRIT 43 % (40-54); HEMOGLOBIN 14.8 g/dL (13.3-17.7); LYMPHOCYTES # (AUTO) 1.4 10^3/uL (1.0-4.0); LYMPHOCYTES % (AUTO) 24 % (12-44); MEAN CORPUSCULAR HEMOGLOBIN 30 pg (25-34); MEAN CORPUSCULAR HGB CONC 34 g/dL (32-36); MEAN CORPUSCULAR VOLUME 87 fL (80-99); MEAN PLATELET VOLUME 8.4 fL (9.0-12.2); MONOCYTES # (AUTO) 0.6 10^3/uL (0.0-1.0); MONOCYTES % (AUTO) 11 % (0-12); NEUTROPHILS # (AUTO) 3.5 10^3/uL (1.8-7.8); NEUTROPHILS % (AUTO) 62 % (42-75); PLATELET COUNT 235 10^3/uL (130-400); WHITE BLOOD COUNT 5.7 10^3/uL (4.3-11.0)
[2021-11-17 08:10] LABS: CALCIUM 8.9 MG/DL (8.5-10.1)
[2021-11-17 08:15] LABS: CREATININE SERUM 0.95 MG/DL (0.60-1.30)
[2021-11-17] MEDS ORDERED: ROCURONIUM 50 MG/5 ML (ZEMURON) VIAL IV ONE (08:51)
[2021-11-17] MEDS ORDERED: PHENYLEPHRINE 100 MCG/ML 10 ML (ANESTHESIA) SYR ONE (08:52)
[2021-11-17] MEDS ORDERED: SEVOFLURANE (ULTANE) 15 ML INHAL SOLN ONE (08:52)
--- NOTE | 2021-11-17 08:57 | Progress Note-Post Operative ---
Post-Operative Progess Note Surgeon (s)/Sharepoint Architect (s) Surgeon JEFERSON BETANCOURT MD Sharepoint Architect n/a Pre-Operative Diagnosis Lower Lip Lesion, Left Eyelid Lesion Post-Operative Diagnosis same Post-Op Procedure Note Date of Procedure: Nov 17, 2021 Name of Procedure Performed: Excision of Lower Lip Lesion with Complex Repair, Excision of Left Eyelid Lesion with Intermediate Repair Description & Findings Description and Findings: n/a Anesthesia Type get Estimated Blood Loss minimal Packing none. Specimen(s) collected/removed lower lip lesion for frozen, left eyelid lesion with frozen JEFERSON BETANCOURT MD Nov 17, 2021 08:57
[2021-11-17] MEDS ORDERED: ACETAMINOPHEN 325 MG TABLET PO PRN (09:00)
[2021-11-17] MEDS ORDERED: HYDROcodone/APAP 5 MG/325 MG (LORTAB) TAB PO PRN (09:00)
--- NOTE | 2021-11-17 09:38 | Anesthesia-General Post-Op ---
General Patient Condition Mental Status/LOC: Same as Preop Cardiovascular: Satisfactory Nausea/Vomiting: Absent Respiratory: Satisfactory Pain: Controlled Complications: Absent Post Op Complications Complications None Follow Up Care/Instructions Patient Instructions None needed. Anesthesia/Patient Condition Patient Condition Patient is doing well, no complaints, stable vital signs, no apparent adverse anesthesia problems. No complications reported per nursing. SARY BARRIOS CRNA Nov 17, 2021 09:38
[2021-11-17] MEDS ORDERED: fentaNYL INJ 100 MCG/2 ML AMP IVP ONE (09:45)
[2021-11-17] MEDS ORDERED: ONDANSETRON 4 MG/2 ML (SDV) Z0FRAN IVP PRN (09:45)
== END 2021-11-17 11:35 ==
LOC: SDC 06:53
PROVIDERS: ATTEND Otolaryngology Otolaryngology/Facial Plastic Surgery
DX: C00.1 Malignant neoplasm of external lower lip (principal); C44.1192 Basal cell carcinoma of skin of left lower eyelid, including canthus
CPT/HCPCS: 36415; 80048; 85025; 87081

== ENCOUNTER → 2022-02-15 | Outpatient (CLI) | payer MEDICARE ==
[~2022-02-15] MED LIST changes: +CATHETER FLUSH 10 ML SYR IV PRN; +HOLD METFORMIN - RECEIVED CONTRAST 20 ML VIAL IV SCH; +IOHEXOL 350 MG/ML 100 ML (OMNIPAQUE 350) VIAL IV ONE; +NS 100 ML (IVPB) BAG IV ONE
[2022-02-15 11:28] LABS: CREATININE SERUM 1.04 MG/DL (0.60-1.30)
--- NOTE | 2022-02-15 14:04 | Diagnostic Imaging Report ---
PROCEDURE: CT angiography of the chest with contrast. TECHNIQUE: Multiple contiguous axial images were obtained through the chest after uneventful bolus administration of intravenous contrast. 3D reconstructed CTA MIP acquisitions were also performed. Auto Exposure Controls were utilized during the CT exam to meet ALARA standards for radiation dose reduction. INDICATION: Thoracic aortic aneurysm, follow-up. Correlation is made with prior CT chest from 09/22/2021. 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 The thoracic aorta is of normal caliber. There is no dissection. A large retrocardiac hiatal hernia is noted as well, similar to prior. There is no pericardial or pleural fluid identified. No axillary lymphadenopathy is detected. No definite mediastinal or hilar lymphadenopathy is detected. No pulmonary infiltrates, nodules or masses are detected. Upper abdomen show small stones within the gallbladder. No other abnormalities are seen. IMPRESSION: 1. 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 2. Large hiatal hernia. 3. No evidence of thoracic aortic aneurysm or dissection. 4. Cholelithiasis. Dictated by: Dictated on workstation # [id number]
== END ==
LOC: CARD 11:30
PROVIDERS: ATTEND Internal Medicine Cardiovascular Disease
DX: E04.9 Nontoxic goiter, unspecified (principal); K44.9 Diaphragmatic hernia without obstruction or gangrene; I27.21 Secondary pulmonary arterial hypertension; K80.20 Calculus of gallbladder without cholecystitis without obstruction
CPT/HCPCS: 71275; 82565; 84520; C8929; 36415; 93306

== ENCOUNTER → 2022-02-20 | Outpatient (CLI) | payer MEDICARE, OTHER ==
[~2022-02-20] MED LIST changes: -CATHETER FLUSH 10 ML SYR IV PRN; +CATHETER FLUSH 10 ML SYR IVP PRN; -HOLD METFORMIN - RECEIVED CONTRAST 20 ML VIAL IV SCH; -IOHEXOL 350 MG/ML 100 ML (OMNIPAQUE 350) VIAL IV ONE; -NS 100 ML (IVPB) BAG IV ONE; +REGADENOSON 0.4 MG/5 ML SYR (LEXISCAN) IV ONE
[2022-02-20 09:27] VITALS: BP 148/96
--- NOTE | 2022-02-21 08:58 | STRESS TEST ---
DATE OF SERVICE: 02/20/2022 RESTING AND POST REGADENOSON TECHNETIUM-99M TETROFOSMIN SPECT CT IMAGING ORDERING PHYSICIAN: Dr. Lino. PRIMARY PHYSICIAN: Dr. Boris Brown. CLINICAL DIAGNOSIS: Coronary artery disease. Baseline images were carried out after injection of 10.91 mCi technetium-99m Tetrofosmin. This was followed by 0.4 mg of regadenoson and 29.1 mCi of technetium-99m Tetrofosmin for stress imaging. The electrocardiogram showed sinus rhythm at baseline. The electrocardiogram shows incomplete right bundle branch block pattern. The electrocardiogram did not change significantly with regadenoson infusion. Review of images at rest and following stress indicates a transient basal inferior perfusion defect. Gated images showed normal global left ventricular systolic function with normal regional wall motion. Left ventricular ejection fraction is calculated to be 79%. CONCLUSION: 1. The study is suggestive of a moderate amount of basal inferior ischemia. 2. Normal regional wall motion. 3. Normal global left ventricular systolic function with a calculated ejection fraction of 79%. Job ID: [id number] DocumentID: [id number] Dictated Date: 02/21/2022 08:31:34 Piler Date: 02/21/2022 08:57:00 Dictated By: EDISON LINO MD; MA; FACP; FACC; SETH
== END ==
LOC: CARD 08:00
PROVIDERS: ATTEND Internal Medicine Cardiovascular Disease
DX: I25.10 Atherosclerotic heart disease of native coronary artery without angina pectoris (principal)
CPT/HCPCS: 78452; 93017; A9502